=== PATIENT | female | born 1975 | race Two or more races ===

== ENCOUNTER 2022-09-13 07:54 | Outpatient (REF) | payer OTHER, SELFPAY ==
[2022-09-13 11:06] LABS: Hematocrit 39.5 % (37.0-47.0); Mean Corpuscular HGB Conc 32.9 g/dl (31.0-35.0); Mean Corpuscular Hemoglobin 29.3 pg (27.0-33.0); Platelet Count 354 X10*3/uL (160-400); Red Blood Count 4.44 X10*6/uL (4.20-5.50); Red Cell Distribution Width 12.6 % (11.0-16.0); White Blood Count 9.2 X10*3/uL (4.8-10.8)
[2022-09-13 12:02] LABS: Alanine Aminotransferase 19 U/L (0-31); Albumin Level 4.4 g/dL (3.5-5.0); Alkaline Phosphatase 74 U/L (39-117); Anion Gap 13 (12-20); Aspartate Amino Transferase 27 U/L (5-31); Bilirubin Total 0.3 mg/dL (0.0-1.0); Blood Urea Nitrogen 15 mg/dL (9-16); Calcium 8.9 mg/dL (8.4-10.2); Carbon Dioxide 25 mmol/L (22-29); Chloride 108 mmol/L (96-108); Cholesterol 203 mg/dL; Estimated Glomerular Filt Rate > 60; Glucose Fasting 99 mg/dL (60-99); HDL Cholesterol 44 mg/dL; LDL Cholesterol Calculated 141 mg/dl; Potassium 4.3 mmol/L (3.3-5.1); Sodium 142 mmol/L (135-145); Triglycerides 91 mg/dL
[2022-09-13 12:13] LABS: TSH reflex Free T4 3.14 uIU/mL (0.32-4.0)
[2022-09-19 22:14] LABS: Vitamin D 25-OH, D2 <4 ng/mL; Vitamin D 25-OH, D3 19 ng/mL; Vitamin D 25-OH, Total 19 ng/mL (30-100)
== END 2022-09-13 07:55 | disposition home or self-care (01) ==
LOC: HO.10HDL 07:54
PROVIDERS: Visit Provider Hospitalist
DX: Z00.00 Encounter for general adult medical examination without abnormal findings (principal); Z13.21 Encounter for screening for nutritional disorder; Z20.2 Contact with and (suspected) exposure to infections with a predominantly sexual mode of transmission
CPT/HCPCS: 36415; 80053; 80061; 82306; 84443; 85027

== ENCOUNTER 2023-01-19 11:05 | Day surgery (SDC) | payer OTHER, SELFPAY ==
[2023-01-17 11:19] VITALS: BMI 23.7
--- NOTE | 2023-01-18 10:19 | HO.ANESPROP2 ---
Documented by User: Bree Richmond NP 01/18/23 10:23 HPI - Anesthesia Eval Consult details Narrative: 47yo F for Colonoscopy PMFSH Active Problems Active Problems: All Active Problems (Updated 09/20/22 @ 08:24 by Xiomara Mccracken NP) Vitamin D deficiency (Acute) High cholesterol (Acute) Sleep-wake 24 hour cycle disruption (Acute) Vasomotor symptoms due to menopause (Acute) Stress due to family tension (Acute) Encounter for vitamin deficiency screening (Acute) Colon cancer screening (Acute) Normal physical exam (Acute) Past Medical History Medical History (Updated 01/19/23 @ 11:24 by Doris Murillo RN) Elevated cholesterol Vitamin D deficiency Surgical History Surgical History (Updated 01/19/23 @ 11:24 by Doris Murillo RN) Hx of appendectomy Hx of section Social History Social History Patient Tobacco Use Status: Former Tobacco user Use of substances other than those prescribed or required for medical reasons: Yes Substance Use Frequency: Occasionally Are you DNR?: No Advance Directives: No Advance Directives Information Provided: Yes Meds Allergies Allergy/AdvReac Type Severity Reaction Status Date / Time No Known Allergies Allergy Verified 01/19/23 11:22 Exam Exam Date and Time: January 18, 2023 1019 Height,Weight and Vital Signs: Height 5 ft 6 in Weight 66.678 kg Pertinent Lab Results Pertinent Lab Results: Laboratory Tests 09/13/22 09/13/22 07:57 07:57 WBC 9.2 Hgb 13.0 Hct 39.5 Plt Count 354 Sodium 142 Potassium 4.3 Chloride 108 Carbon Dioxide 25 BUN 15 Creatinine 0.87 Assessment and Plan Assessment Anesthesia Assessment: Chart Reviewed Documented by User: Keith Robins MD 01/19/23 11:58 PMFSH Past Medical History Medical History (Updated 01/19/23 @ 11:24 by Doris Murillo RN) Elevated cholesterol Vitamin D deficiency Family History Family history of problems with anesthesia: No Surgical History Surgical History (Updated 01/19/23 @ 11:24 by Doris Murillo RN) Hx of appendectomy Hx of section History of Problems with Anesthesia: No Social History Social History Patient Tobacco Use Status: Former Tobacco user Use of substances other than those prescribed or required for medical reasons: Yes Substance Use Frequency: Occasionally Are you DNR?: No Advance Directives: No Advance Directives Information Provided: Yes Meds Allergies Allergy/AdvReac Type Severity Reaction Status Date / Time No Known Allergies Allergy Verified 01/19/23 11:22 Exam Airway Mallampati Class: II TM Dist: >3cm Neck ROM: Full Assessment and Plan Assessment Anesthesia Assessment: Anesthesia Plan Discussed Final Anesthetic Review Family History of Problems with Anesthesia: No History of Problems with Anesthesia: No NPO: Yes ASA Class: II Final Preanesthetic Review: No Changes in Pt Med Stat, Meds/Allgs Chart Reviewed, Consent Obtained/Reviewed and Anes Risks/Benef Reviewed Patient Risk: Low Procedure Risk: Low Anesthetic Plan Anesthetic Plan: MAC: Disposition: Standard PACU
[2023-01-19 11:32] LABS: UPreg QC Valid YES; Urine Pregnancy NEGATIVE (NEGATIVE)
[2023-01-19 11:37] VITALS: BP 126/68; PULSE 76; RESP 15; TEMP 36.6; O2SAT 98
[2023-01-19] MEDS: Lactated Ringers 1,000 ML 100 ML IVCONT (11:52)
--- NOTE | 2023-01-19 12:01 | MHC.SHP ---
Pre-Procedural Eval Section A Date of Service: 01/19/23 The patient is an INPATIENT: No The History & Physical has been completed within 30 days and I have reviewed it.: No Section B Chief Complaint: Encounter for screening for malignant neoplasm Relevant Family History (Specify if Yes): Yes Relevant Social History: None Present Medications: see Short Stay Collaborative assessment Medical History: Significant History ( high cholesterol, vitamin-D deficiency) History of Previous Operations: No relevant previous surgery Allergies: Allergies Allergy/AdvReac Type Severity Reaction Status Date / Time No Known Allergies Allergy Verified 01/19/23 11:22 Review of Systems Sugical H&P ROS: Negative: Constitution, Cardiovascular, Respiratory and Gastrointestinal Exam Surgical H&P Exam: Normal: Heart, Normal: Lungs, Normal: Extremities and Normal: Abdomen Plan Diagnosis/Plan: Unchanged I have reviewed the history and physical and performed a pertinent physical examination on my patient. No changes have occurred unless specified. Time Spent With Patient Time: Total time managing care of this patient today ____ minutes.
--- NOTE | 2023-01-19 12:06 | W.PM.OPN ---
Operative Note Operative Note Date of Service: 01/19/23 Narrative: COLONOSCOPY TILL CECUM WITH BIOPSIES Pre-op diagnosis: colon cancer screening, family history of colon cancer (aunt in her 50's) and colon polyps (sister at age 47 years) Post-op diagnosis:? colon polyp, diverticulosis, hemorrhoids Endoscopist:? Damian Paredes MD Anesthesia:?MAC Consent: Indications for the procedure and potential complications of bleeding, perforation, reaction to medications and missed diagnosis were discussed with the patient and informed consent was obtained. Instrument: Olympus PCF H 190 L variable stiffness pediatric colonoscope Monitoring: Vital signs and clinical assessment, intermittent blood pressure monitoring, continuous EKG monitoring, Pulse oximetry and Carbon Dioxide monitoring were done throughout the procedure. Please see anesthesia flowsheet. Colon withdrawl time was 11 minutes. Procedure: The patient was placed in the left lateral decubitis position and pre-procedure medications were administered. After a digital rectal examination of the ano-rectum, the video colonoscope was inserted into the rectum and advanced through the colon to the cecum. The colonoscope was slowly withdrawn in a retrograde panoramic fashion and the colon mucosa was carefully examined including a retroflexed view of the rectum. Findings and interventions are described below. Procedure Difficulty: Without difficulty Findings: Terminal Ileum: Not evaluated Cecum: Normal Ascending Colon: A 7-8 mm sessile polyp in the distal AC - removed with a cold bx Transverse Colon: Normal Descending Colon: Normal Sigmoid Colon: Moderate diverticulosis Rectum: Normal Ano-rectum: Moderate internal hemorrhoids Colon preparation: Excellent Impression and Post Procedure Diagnosis: Colonoscopy Findings: One small polyp removed Moderate diverticulosis seen in the sigmoid colon Moderate hemorrhoids on retroflexed exam. Plan: I will send a letter with pathology results Repeat Colonoscopy interval based on path results - in 5 years if polyps are adenomatous and due to family hx of colon cancer and colon polyps. Above findings were reviewed with the patient and colon polyps and diverticulosis handouts were given in the discharge area
[2023-01-19 12:38] VITALS: BP 130/73; PULSE 68; RESP 16; TEMP 36.9; O2SAT 98
[2023-01-19 12:52] VITALS: BP 121/98; PULSE 69; RESP 16; TEMP 36.6; O2SAT 100
== END 2023-01-19 13:00 | disposition home or self-care (01) ==
PROVIDERS: Nurse Practitioner; PCP Hospitalist; Visit Provider Internal Medicine Gastroenterology
PROC: 0DJD8ZZ Inspection of Lower Intestinal Tract, Via Natural or Artificial Opening Endoscopic (ICD-10-PCS; CPT 45378; principal; 2023-01-19 12:20)
DX: Z12.11 Encounter for screening for malignant neoplasm of colon (principal); Z83.71 Family history of colonic polyps; D12.2 Benign neoplasm of ascending colon; K57.30 Diverticulosis of large intestine without perforation or abscess without bleeding; K64.8 Other hemorrhoids
CPT/HCPCS: 45380; 81025; 88305

== ENCOUNTER → 2023-01-19 11:05 | Outpatient (BNV) | payer OTHER, SELFPAY | PROVIDERS: PCP Hospitalist; Visit Provider Internal Medicine Gastroenterology | DX: Z12.11 Encounter for screening for malignant neoplasm of colon (principal); Z80.0 Family history of malignant neoplasm of digestive organs; Z83.71 Family history of colonic polyps; D12.2 Benign neoplasm of ascending colon | CPT/HCPCS: 45380 ==

== ENCOUNTER 2024-03-18 09:23 | Outpatient (AMB) | payer OTHER, SELFPAY ==
--- NOTE | 2024-03-18 09:32 | A.OFFPC_ITS ---
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 Is last menstrual period known: Yes Last menstrual period: 03/01/24 Post menopausal: No Patient : No Allergies No Known Allergies Allergy (Verified 03/18/24 09:46) Medication List - Last Reconciled 03/18/24 by Patrick Nick CNP atorvastatin 20 mg PO BEDTIME cholecalciferol (vitamin D3) 1,250 mcg PO QWEEK Tobacco use date assessed: 03/18/24 Dental Screening Dental Screen Date: 03/18/24 Did you have a dental visit in the last 12 months?: Yes Did you have a dental problem in the last 6 months where you did not have access to dental care?: No Was dental information given to patient?: Patient has dentist HPI HPI Comments History of Present Illness Details Transfer of care Prior PCP:? [facility], Xiomara Mccracken NP Last office visit/CPE: 08/2022 Acute issue(s): Vitamin-D deficiency -She was on Cholecalciferol 1250 mcg wee kly but ran out about 3 months ago Hypercholesterolemia -She was on atorvastatin 20mg every nigh t but ran out about 3 months ago She eats and sleeps well. She has been exercising routinely She reports chest tightness during physical exercise for the past 3 months; no dyspnea or chest pain. She notes history of childhood asthma for which she was on an albuterol inhaler PMHx: Vitamin-D deficiency, hypercholesterolemia, myopia, childhood asthma SurgHx: section, appendectomy FHx: Dad: Alcohol abuse, substance abuse, Paternal aunt: colon cancer SocHx: Former smoker; smoked for a couple of years in her 20s. Drinks occasionally. Smokes a blunt of marijuana twice daily; she has been smoking cannabis for several years Last eye exam was 2 years ago; will call her eye doctor for an appointment Last colonoscopy: 01/19/2023 Last mammogram was 04/2023 at [facility]; she has a mammogram scheduled in 04/2024; she will sign a release for her PCP to obtain her record Last pap smear test was in December 2022 at [facility]: normal [facility] Medical History (Updated 03/18/24 @ 10:15 by Patrick Nick CNP) Sinusitis Vitamin D deficiency Elevated cholesterol Surgical History (Updated 01/19/23 @ 11:24 by Doris Murillo RN) Hx of section Hx of appendectomy Family History (Updated 03/18/24 @ 09:47 by Milly Reyes) Father Alcohol abuse Substance abuse High cholesterol Cardiovascular disease Maternal Grandmother Leukemia Social History (Updated 03/18/24 @ 09:42 by Milly Reyes) Housing: Apartment Patient Tobacco Use Status: Former Tobacco user e-Cigarette/Vaping Use: Never Used Substance Use Type: Marijuana service: No Current occupational status: employed 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 1. Little interest or pleasure in doing things: not at all 2. Feeling down, depressed, or hopeless: not at all 3. Trouble falling or staying asleep, or sleeping too much: several days 4. Feeling tired or having little energy: not at all 5. Poor appetite or overeating: not at all 6. Feeling bad about yourself - or that you are a failure or have let yourself or your family down: not at all 7. Trouble concentrating on things, such as reading the newspaper or watching television: not at all 8. Moving or speaking so slowly that other people could have noticed. Or the opposite - being so fidgety or restless that you have been moving around a lot more than usual: not at all 9. Thoughts that you would be better off or of hurting yourself in some way: not at all Total score: 1 Depression Screening Interpretation: Negative Depression Screening Done: Yes 88567 - PHQ-9 Billing: Yes Source: Developed by Drs. Sherwin Cha, Liz Cervantes, Sourav Beyer and colleagues, with an educational allyssa from [employer] Thrive Questionnaire Date Thrive assessed: 03/18/24 I am a: Patient What is your living situation today?: I have a steady place to live Within the past 12 months, did the food you bought not last and you didn't have the money to get more?: Never true Within the past 12 months, did you worry whether your food would run out before you got money to buy more?: Never true Do you have trouble paying for medicines?: No Do you have trouble getting transportation to medical appointments?: No Do you have trouble paying your heating and electricity bill?: No Do you have trouble taking care of your child, family member or friend?: No Do you have trouble with day-to-day activities such as bathing, preparing meals, shopping, managing finances, etc.?: No Are you currently unemployed and looking for a job?: No Are you interested in more education?: No Please select the resources that you would like help with: None Currently or been in a relationship where the following occur: No concerns reported THRIVE Score: 0 AUDIT C Alcohol Use Questionnaire (AUDIT-C) 1. How often do you have a drink containing alcohol?: Monthly or less 2. How many drinks containing alcohol do you have on a typical day when you are drinking?: 1 or 2 3. How often do you have six or more drinks on one occasion?: Never Total Score: 1 Score Reviewed/Action Taken: Yes LUZMA-7 AMB Questionnaire LUZMA-7 Date LUZMA - 7 assessed: 03/18/24 Feeling nervous, anxious, or on edge: 0 = Not at all Not being able to stop or control worryin = Not at all Worrying too much about different things: 0 = Not at all Trouble relaxin = Not at all Being so restless that it is hard to sit still: 0 = Not at all Becoming easily annoyed or irritable: 0 = Not at all Feeling afraid as if something awful might happen: 0 = Not at all Total LUZMA-7 score (0-4 normal; 5-9 mild; 10-14 moderate; 15-21 severe): 0 Source: Developed by Drs. Sherwin Cha, Liz Cervantes, Sourav Beyer and colleagues, with an educational allyssa from [employer] LUZMA-7 Assessment Billing LUZMA-7 Assessment Tool: LUZMA-7 Assessment 43411 Review of Systems Const Details: Denies chills, Denies fatigue, Denies fever(s), Denies headache(s) and Denies weakness HEENT Denies change in vision, Denies dizziness, Denies headache(s), Denies hearing l oss, Denies nasal congestion, Denies sinus pain, Denies sinus pressure and Denies sore throat Card Denies chest pain, Denies lightheadedness, Denies dyspnea and Denies other (palpitations) Resp Denies cough, Denies dyspnea and Denies wheezing GI Denies abdominal pain, Denies melena, Denies hematochezia, Denies change in bowel habits, Denies dyspepsia and Denies nausea Denies hematuria and Denies dysuria Musc Denies abnormal gait, Denies myalgias, Denies arthralgias, Denies numbness and Denies tingling Skin/Breast Denies rash, Denies unusual bruising and Denies wounds Neuro Denies abnormal gait, Denies dizziness, Denies headache(s), Denies memory loss, Denies numbness, Denies Sensory deficit (Neuro), Denies tingling and Denies weakness Psych Denies anxiety, Denies depression and Denies memory loss Endo Denies cold intolerance, Denies fatigue, Denies heat intolerance, Denies polydipsia and Denies polyuria Jerry/Lymph Denies easy bleeding and Denies easy bruising Aller/Immun Denies wheezing Physical exam (Primary Care) Vital Signs: Last Vital Signs Temp 97.4 F 03/18/24 09:39 Pulse 85 03/18/24 09:39 Resp 16 03/18/24 09:39 BP 130/90 H 03/18/24 09:39 Pulse Ox 99 03/18/24 09:39 Oxygen Delivery Method Room Air 03/18/24 09:39 BMI result Body Mass Index 25.5 Tobacco/Smoking Status: Tobacco use Status Tobacco use date assessed 03/18/24 03/18/24 09:39 Patient Tobacco Use Status Former Tobacco user 03/18/24 09:42 e-Cigarette/Vaping Use Never Used 03/18/24 09:42 PHQ-9: PHQ-9 Score PHQ-9: Total score 1 03/18/24 09:47 Depression Screening Interpretation: Negative Thrive Assessment: Date of Thrive Assessment Date Thrive assessed 03/18/24 03/18/24 09:47 Currently or been in a relationship where the following occur: No concerns reported Const Other: General: no acute distress, well developed, alert and awake Nutritional Appearance: well nourished Orientation/consciousness: patient oriented x3 [facility] Head: Yes normocephalic and Yes atraumatic Ears: hearing grossly normal bilaterally and TM's normal bilaterally General nose exam: Normal external nose present and Normal nares present Mouth: Normal oral and palatal mucosa present and moist mucous membranes Teeth and gingiva: dentition normal Throat: Yes oropharynx normal Eyes Pupils: Equal, round and reactive pupils present and Pupil accommodation reflex normal EOM: EOMs intact bilaterally Neck Neck: Yes normal visual inspection, Yes no lymphadenopathy and Yes trachea midline Thyroid: Thyroid normal Carotids: no bruits Lymphatic: no lymphadenopathy noted Chest Chest palpation & inspection: normal inspection of the chest Resp Effort & Inspection: normal respiratory effort Auscultation: clear to auscultation bilaterally Cardio Rate: regular rate Rhythm: regular rhythm Heart sounds: S1 normal heart sound present, S2 normal heart sound present, no gallops, no murmurs and no rubs Bruits: no abdominal aortic bruits and no carotid bruits GI Palpation (GI): No Abdominal aortic bruit present, Soft to palpation, nontender, No hepatosplenomegaly present and No Rebound tenderness present Auscultation: normal bowel sounds General: Yes no CVA tenderness Back/Spine/Pelvis Back: no CVA tenderness Cervical Spine: cervical ROM normal and No Cervical spine tenderness Thoracic/Lumbar Spine: thoraco-lumbar ROM normal, No pain with thoraco-lumbar ROM, No thoracic spinal tenderness and No lumbar spinal tenderness Skin General: warm and dry. Normal skin color. Normal skin turgor Lesions: no lesions Rashes: no rashes Trauma: no lacerations or abrasions Wounds: no wounds Nails: normal Neuro General: patient oriented x3, gait normal and CN's II-XI intact bilaterally Cranial nerves: Yes Equal, round and reactive pupils present Cognition (Neuro): normal cognition Gait exam (Neuro): Normal gait present Motor exam (neuro): 5/5 motor strength present throughout Sensory Exam: No Sensory deficit (Neuro) Deep tendon reflexes (DTR's): Right patellar reflex intensity grade: 2+ and Left patellar reflex intensity grade: 2+ Extrem General: Yes normal to inspection, No edema and No calf tenderness Psych Appearance: grossly normal Affect: normal affect Attitude: cooperative Thought process: Normal thought process present Assessment and Plan Assessment & Plan (1) Normal physical exam: Code(s): Z00.00 - Encounter for general adult medical examination without abnormal findings Plan: No significant physical restrictions or limitations noted Continue current treatment regimen Healthy diet and routine exercise encouraged Advised to get lab work done and follow up for a telehealth visit in 2-3 weeks for labs review Return sooner with symptoms or concerns Verbalized understanding and agreed with the plan (2) Vitamin D deficiency: Code(s): E55.9 - Vitamin D deficiency, unspecified Plan: She was on vitamin D3 1250 mcg daily until she ran out 3 months ago Vitamin D3 50 mcg ordered. Advised to take as prescribed Will check vitamin D level and make changes and needed Verbalized understanding and agreed with the plan (3) Hypercholesterolemia: Code(s): E78.00 - Pure hypercholesterolemia, unspecified Plan: She has h/o slightly elevated cholesterol and LDL, 203 and 141 respectively. She was on atorvastatin 20mg every night until she ran out 3 months ago Advised to limit foods high in saturated fat and avoid foods high in trans fat Routine exercise encouraged Will check lipid panel level and make changes as needed Verbalized understanding and agreed with the plan (4) Chest tightness: Code(s): R07.89 - Other chest pain Plan: Reports chest tightness during physical exercise for the past 3 months. No dyspnea or chest pain. She notes h/o childhood asthma Likely exercise induced lungs/chest discomfort Albuterol inhaler ordered. Advised to use as prescribed Follow up with worsening or new symptoms Verbalized understanding and agreed with the treatment plan (5) Laboratory tests ordered as part of a complete physical exam (CPE): Code(s): Z00.00 - Encounter for general adult medical examination without abnormal findings Plan: Fasting labs ordered as part of a complete physical exam. Advised to fast for at least 10 hours before getting labs drawn. May drink water Verbalized understanding and agreed with treatment plan. Orders: Orders Complete Blood Count Auto Diff Today Z00.00 - Encounter for general adult medical examination without abnormal findings Comprehensive [place]. Panel Fast Today Z00.00 - Encounter for general adult medical examination without abnormal findings TSH reflex Free T4 Today Z00.00 - Encounter for general adult medical examination without abnormal findings Lipid Panel Today Z00.00 - Encounter for general adult medical examination without abnormal findings Microalbumin, Random (w Creat) Today Z00.00 - Encounter for general adult medical examination without abnormal findings UA CC w/rflx Micro + Cult Today Z00.00 - Encounter for general adult medical examination without abnormal findings Vitamin D 25-OH Total Today E55.9 - Vitamin D deficiency, unspecified Medications: New albuterol sulfate 90 mcg/actuation 2 puffs inhalation Q4-6H PRN 8.5 grams 3RF shortness of breath, wheezing or chest tightness cholecalciferol (vitamin D3) 50 mcg PO DAILY 90 days 90 tabs 1RF Discontinued atorvastatin Discontinued Reason: Patient no longer taking 20 mg PO BEDTIME 90 tabs 3RF E78.00 - Pure hypercholesterolemia, unspecified cholecalciferol (vitamin D3) Discontinued Reason: Doctor's Order 1,250 mcg PO QWEEK 14 caps 3RF E55.9 - Vitamin D deficiency, unspecified Coding Level of Care Code Est Pt Level 3 (29500) Est Pt Prev Care 40-64y(09895) Diagnoses Normal physical exam Z00.00 Vitamin D deficiency E55.9 Hypercholesterolemia E78.00 Chest tightness R07.89 Laboratory tests ordered as part of a complete physical exam (CPE) Z00.00 Additional Codes LUZMA-7 Assessment Billing - LUZMA-7 Assessment Tool: LUZMA-7 Assessment 95883 ([id number])
[2024-03-18 09:39] VITALS: BP 130/90; PULSE 85; RESP 16; TEMP 36.3; O2SAT 99; BMI 25.5
== END 2024-03-18 10:12 | disposition home or self-care (01) ==
LOC: HO.HMCFM 09:23
PROVIDERS: PCP Hospitalist; Visit Provider Nurse Practitioner Family
DX: Z00.00 Encounter for general adult medical examination without abnormal findings (principal); E55.9 Vitamin D deficiency, unspecified; E78.00 Pure hypercholesterolemia, unspecified; R07.89 Other chest pain

== ENCOUNTER → 2024-03-18 09:23 | Outpatient (BNVA) | payer OTHER, SELFPAY | PROVIDERS: PCP Hospitalist; Visit Provider Nurse Practitioner Family | DX: Z00.00 Encounter for general adult medical examination without abnormal findings (principal); E55.9 Vitamin D deficiency, unspecified; E78.00 Pure hypercholesterolemia, unspecified; R07.89 Other chest pain | CPT/HCPCS: 96127 ==

== ENCOUNTER 2024-03-31 08:03 | Outpatient (REF) | payer OTHER, SELFPAY ==
[2024-03-31 10:37] LABS: MANUAL DIFF FLAG NO
[2024-03-31 10:43] LABS: Basophils Absolute Auto 0.1 X10*3/uL (0.0-0.2); Basophils Percent Auto 0.7 % (0-2); Eosinophils Absolute Auto 0.7 X10*3/uL (0.0-0.4); Eosinophils Percent Auto 7.9 % (0-4); Hematocrit 38.6 % (37.0-47.0); Imm Gran Abs Auto 0.03 X10*3/uL (0.00-0.03); Imm Gran Pct Auto 0.4 % (0.0-0.4); Lymphocytes Absolute Auto 2.1 X10*3/uL (1.2-4.9); Mean Corpuscular HGB Conc 33.7 g/dl (31.0-35.0); Mean Corpuscular Hemoglobin 29.1 pg (27.0-33.0); Mean Corpuscular Volume 86.5 fL (80.0-98.0); Mean Platelet Volume 9.1 fL (9.4-12.3); Monocytes Absolute Auto 0.7 X10*3/uL (0.1-1.2); Neutrophils Absolute Auto 4.8 x10*3/uL (2.0-8.3); Platelet Count 330 X10*3/uL (160-400); Red Blood Count 4.46 X10*6/uL (4.20-5.50); Red Cell Distribution Width 12.8 % (11.0-16.0); White Blood Count 8.2 X10*3/uL (4.8-10.8)
[2024-03-31 10:55] LABS: Appearance Urine Turbid; Color Urine Yellow; Glucose Urine UA Negative (Negative); Leukocyte Esterase Urine Negative (Negative); Nitrite Urine Negative (Negative); PH 5.5 (5.0-9.0); Specific Gravity - Urine >= 1.030 (1.005-1.025); Urine Blood Negative (Negative); Urine Ketones Negative (Negative); Urine Protein Negative (Neg-Trace)
[2024-03-31 11:12] LABS: Alanine Aminotransferase 17 U/L (0-31); Albumin Level 4.4 g/dL (3.5-5.0); Alkaline Phosphatase 73 U/L (39-117); Anion Gap 13 (12-20); Aspartate Amino Transferase 16 U/L (5-31); Bilirubin Total 0.2 mg/dL (0.0-1.0); Blood Urea Nitrogen 17 mg/dL (9-16); Calcium 9.3 mg/dL (8.4-10.2); Carbon Dioxide 23 mmol/L (22-29); Chloride 107 mmol/L (96-108); Cholesterol 182 mg/dL (<200); Creatinine Urine 229.86 mg/dL; Estimated Glomerular Filt Rate > 60; Glucose Fasting 121 mg/dL (60-99); HDL Cholesterol 48 mg/dL (>40); LDL Cholesterol Calculated 116 mg/dL (<100); Microalbum/Creatinine Ratio Ur 3.9 ug/mg cr (<30); Potassium 4.1 mmol/L (3.3-5.1); Sodium 139 mmol/L (135-145); Total Protein 7.7 g/dL (6.5-8.0); Triglycerides 94 mg/dL (<150)
[2024-03-31 11:20] LABS: TSH reflex Free T4 2.36 uIU/mL (0.32-4.0); Vitamin D 25-OH Total 66.9 ng/mL (>30)
== END 2024-03-31 08:04 | disposition home or self-care (01) ==
LOC: HO.10HDL 08:03
PROVIDERS: Visit Provider Nurse Practitioner Family
DX: Z00.00 Encounter for general adult medical examination without abnormal findings (principal); E55.9 Vitamin D deficiency, unspecified
CPT/HCPCS: 36415; 80053; 80061; 81003; 82043; 82306; 82570; 84443; 85025

== ENCOUNTER 2024-04-04 12:25 | Outpatient (AMB) | payer OTHER, SELFPAY ==
--- NOTE | 2024-04-04 12:22 | A.OFFPC_ITS ---
Intake Visit Reasons: 2-3 wks telehealth labs review Intake Note: patient here for telehealth to follow up on labs National Business Director Required: No Allergies No Known Allergies Allergy (Verified 04/04/24 12:23) Tobacco use date assessed: 03/18/24 Dental Screening Dental Screen Date: 03/18/24 HPI HPI Comments History of Present Illness Details 48-year-old female presents for review o f recent lab results She offers no complaints and denies acute symptoms at this time PFS Medical History (Updated 04/04/24 @ 12:48 by Patrick Nick CNP) Sinusitis Vitamin D deficiency Elevated cholesterol Surgical History (Updated 01/19/23 @ 11:24 by Doris Murillo RN) Hx of section Hx of appendectomy Family History (Updated 03/18/24 @ 09:47 by Milly Reyes MA) Father Alcohol abuse Substance abuse High cholesterol Cardiovascular disease Maternal Grandmother Leukemia Social History (Updated 03/18/24 @ 09:42 by Milly Reyes MA) Housing: Apartment Patient Tobacco Use Status: Former Tobacco user e-Cigarette/Vaping Use: Never Used Substance Use Type: Marijuana service: No Current occupational status: employed 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 Sherwin Cha, Liz Cervantes, Sourav Beyer and colleagues, with an educational allyssa from [employer]. Review of Systems Const Details: Const Denies chills, Denies fatigue, Denies fever(s), Denies headache(s) and Denies weakness ENT Denies dizziness and Denies headache(s) Card Denies chest pain, Denies lightheadedness, Denies dyspnea and Denies other (Palpitations) Resp Denies cough, Denies dyspnea, Denies wheezing and Denies other ( shortness of breath) GI Denies abdominal pain, Denies melena, Denies hematochezia, Denies change in bowel habits, Denies dyspepsia and Denies nausea Denies hematuria and Denies dysuria Musc Denies abnormal gait, Denies myalgias, Denies arthralgias, Denies numbness and Denies tingling Skin/Breast Denies rash, Denies unusual bruising and Denies wounds Neuro Denies abnormal gait, Denies dizziness, Denies headache(s), Denies memory loss, Denies numbness, Denies Sensory deficit (Neuro), Denies tingling and Denies weakness Endo Denies cold intolerance, Denies fatigue, Denies heat intolerance, Denies polydipsia and Denies polyuria Aller/Immun Denies wheezing Physical exam (Primary Care) Tobacco/Smoking Status: Tobacco use Status Tobacco use date assessed 03/18/24 04/04/24 12:24 Patient Tobacco Use Status Former Tobacco user 04/04/24 12:24 e-Cigarette/Vaping Use Never Used 04/04/24 12:24 Thrive Assessment: Date of Thrive Assessment Date Thrive assessed 03/18/24 04/04/24 12:24 Const Other: Telehealth visit. No physical exam Telehealth Telehealth Telehealth Platform: Telephone Location of provider rendering services: practice address Location of patient: address on file Patient Identification confirmed using: Name, : Yes Telehealth method: voice only Patient verbally consented to treatment: Yes Patient verbally consented to billing insurance company: Yes Patient informed of any privacy concerns related to visit: Yes Coding Level of Care Code Tele Est Pt Level 3 (19533) Diagnoses Elevated fasting glucose R73.01 Time Spent (min) 10 Assessment & Plan Assessment & Plan (1) Elevated fasting glucose: Code(s): R73.01 - Impaired fasting glucose Category: Medical Plan: Recent lab results reviewed with the patient. Unremarkable findings except for elevated fasting glucose, 121 Will recheck fasting glucose and make changes as needed. Advised to fast for 10-12 hours, may drink water only, and get blood work done a few days before her next visit Follow-up in 2 weeks for a telehealth visit for labs review or sooner with symptoms or concerns Verbalized understanding and agreed with the plan Orders: Orders Glucose Fasting Today R73.01 - Impaired fasting glucose
== END 2024-04-04 12:54 | disposition home or self-care (01) ==
LOC: HO.HMCFM 12:25
PROVIDERS: PCP Hospitalist; Visit Provider Nurse Practitioner Family
DX: R73.01 Impaired fasting glucose (principal)

== ENCOUNTER → 2024-04-04 12:25 | Outpatient (BNVA) | payer OTHER, SELFPAY | PROVIDERS: PCP Hospitalist; Visit Provider Nurse Practitioner Family ==

== ENCOUNTER 2024-04-28 07:52 | Outpatient (REF) | payer OTHER, SELFPAY ==
[2024-04-28 08:47] LABS: Glucose Fasting 116 mg/dL (60-99)
[2024-05-05 14:38] LABS: Vitamin D 25-OH, D2 <4 ng/mL; Vitamin D 25-OH, D3 47 ng/mL; Vitamin D 25-OH, Total 47 ng/mL (30-100)
== END 2024-04-28 07:53 | disposition home or self-care (01) ==
LOC: HO.LAB 07:52
PROVIDERS: Hospitalist; PCP Nurse Practitioner Family; Visit Provider Nurse Practitioner Family
DX: R73.01 Impaired fasting glucose (principal); E55.9 Vitamin D deficiency, unspecified
CPT/HCPCS: 36415; 82306; 82947

== ENCOUNTER 2024-04-30 15:20 | Outpatient (AMB) | payer OTHER, SELFPAY ==
--- NOTE | 2024-04-30 10:26 | MHC.PC.OV ---
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 Is last menstrual period known: Yes Last menstrual period: 03/01/24 Post menopausal: No Patient : No Allergies No Known Allergies Allergy (Verified 04/30/24 15:19) Tobacco use date assessed: 04/30/24 Dental Screening Dental Screen Date: 03/18/24 Did you have a dental visit in the last 12 months?: Yes Did you have a dental problem in the last 6 months where you did not have access to dental care?: No Was dental information given to patient?: Patient has dentist HPI HPI Comments History of Present Illness Details 48-year-old female presents for review of recent fasting blood glucose result She offers no complaints and denies acute symptoms at this time [facility] Medical History (Updated 04/04/24 @ 12:48 by Patrick Nick CNP) Sinusitis Vitamin D deficiency Elevated cholesterol Surgical History (Updated 01/19/23 @ 11:24 by Doris Murillo RN) Hx of section Hx of appendectomy Family History (Updated 03/18/24 @ 09:47 by Milly Reyes MA) Father Alcohol abuse Substance abuse High cholesterol Cardiovascular disease Maternal Grandmother Leukemia Social History (Updated 03/18/24 @ 09:42 by Milly Reyes MA) Housing: Apartment Patient Tobacco Use Status: Former Tobacco user e-Cigarette/Vaping Use: Never Used Substance Use Type: Marijuana Patient : No service: No Current occupational status: employed 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 Sherwin Cha, Liz Cervantes, Sourav Beyer and colleagues, with an educational allyssa from [employer]. Review of Systems Const Details: Const Denies chills, Denies fatigue, Denies fever(s), Denies headache(s) and Denies weakness ENT Denies dizziness and Denies headache(s) Card Denies chest pain, Denies lightheadedness, Denies dyspnea and Denies other (Palpitations) Resp Denies cough, Denies dyspnea, Denies wheezing and Denies other ( shortness of breath) GI Denies abdominal pain, Denies melena, Denies hematochezia, Denies change in bowel habits, Denies dyspepsia and Denies nausea Denies hematuria and Denies dysuria Musc Denies abnormal gait, Denies myalgias, Denies arthralgias, Denies numbness and Denies tingling Skin/Breast Denies rash, Denies unusual bruising and Denies wounds Neuro Denies abnormal gait, Denies dizziness, Denies headache(s), Denies memory loss, Denies numbness, Denies Sensory deficit (Neuro), Denies tingling and Denies weakness Psych Denies anxiety, Denies depression, Denies memory loss Endo Denies cold intolerance, Denies fatigue, Denies heat intolerance, Denies polydipsia and Denies polyuria Aller/Immun Denies wheezing Physical exam (Primary Care) Tobacco/Smoking Status: Tobacco use Status Tobacco use date assessed 04/30/24 04/30/24 15:20 Patient Tobacco Use Status Former Tobacco user 04/30/24 10:29 e-Cigarette/Vaping Use Never Used 04/30/24 10:29 Thrive Assessment: Date of Thrive Assessment Date Thrive assessed 03/18/24 04/30/24 10:29 Const Other: Telehealth visit. No physical exam Telehealth Telehealth Telehealth Platform: Telephone Location of provider rendering services: practice address Location of patient: address on file Patient Identification confirmed using: Name, : Yes Telehealth method: voice only Patient verbally consented to treatment: Yes Patient verbally consented to billing insurance company: Yes Patient informed of any privacy concerns related to visit: Yes Coding Level of Care Code Tele Est Pt Level 3 (00120) Diagnoses Elevated fasting glucose R73.01 Time Spent (min) 10 Assessment & Plan Assessment & Plan (1) Elevated fasting glucose: Code(s): R73.01 - Impaired fasting glucose Category: Medical Plan: Recent fasting glucose is 116. Previous fasting glucose was 121 Will order hemoglobin A1c, review result, and make changes as needed Advised to get nonfasting blood work done Verbalized understanding and agreed with the plan Orders: Orders Hemoglobin A1c Today R73.01 - Impaired fasting glucose
== END 2024-04-30 16:06 | disposition home or self-care (01) ==
LOC: HO.HMCFM 15:20
PROVIDERS: PCP Nurse Practitioner Family; Visit Provider Nurse Practitioner Family
DX: R73.01 Impaired fasting glucose (principal)

== ENCOUNTER 2024-05-27 08:04 | Outpatient (REF) | payer OTHER, SELFPAY ==
[2024-05-27 12:06] LABS: Estimated Average Glucose 123 mg/dL; Hemoglobin A1C 177.5177 umol/L; Hemoglobin A1c % 5.9 % (<6.0); Total Hemoglobin (HGBA1C) 4340.1913 umol/L
== END 2024-05-27 08:05 | disposition home or self-care (01) ==
LOC: HO.10HDL 08:04
PROVIDERS: Visit Provider Nurse Practitioner Family
DX: R73.01 Impaired fasting glucose (principal)
CPT/HCPCS: 36415; 83036

== ENCOUNTER 2024-12-17 14:16 | Outpatient (AMB) | payer OTHER, SELFPAY ==
--- NOTE | 2024-12-17 14:44 | A.OFFPC_ITS ---
Vital Signs 12/17/24 14:48 Height 5 ft 6 in Weight 157 lb BMI 25.3 BP 136/86 Blood Pressure Location Lt brachial Position Sitting Respiration 12 Pulse 81 Pulse Source Pulse Oximeter Temp 98.6 F Temp Source Oral Pulse Oximetry (%) 98 Oxygen Delivery Method Room Air Intake Visit Reasons: [facility] from [facility] Intake Note: New patient visit Instructional Technology Director Required: No Allergies No Known Allergies Allergy (Verified 12/17/24 14:44) Medication List - Last Reconciled 12/17/24 by Farrah Chavez PA-C albuterol sulfate 90 mcg/actuation 2 puffs inhalation Q4-6H PRN trazodone 50 mg PO BEDTIME Tobacco use date assessed: 12/17/24 Dental Screening Dental Screen Date: 12/17/24 Did you have a dental visit in the last 12 months?: Yes Did you have a dental problem in the last 6 months where you did not have access to dental care?: No Was dental information given to patient?: Patient has dentist HPI [facility] from [facility] HPI Details Pt is a 49 year old female who presents today to [facility]. She has a hx of perimenopause, prediabetic, hyperlipidemia Endo: Last A1c was consistent with prediabetes. States that this is very stressful for her that she does not feel like she had a great understanding of the prediabetes. No family history. Psych: She is frustrated because she finds herself emotional more than baseline, foggy with her memory and having very disturbed sleep. She states that she only sleeps every couple hours. She is up all throughout the night e luzmaria since being perimenopausal. She is getting some intermittent hot flashes. Has not notice any significant improvement with the hot flashes with the HRT. MSK: reports bilateral hip pain, lumbar back pain, right shoulder pain x 1 year. No radiation of the pain. Walking for a long time will worsen the pain and stiffen the joints. No trauma. She states she is overall just achy. No joint swelling, erythema, no rashes, no instability. No illness prior. No fam hx of autoimmune disease. 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 Mammo: mauro 05/18 Colonoscopy: due in 2027 [facility] Medical History (Updated 12/17/24 @ 15:34 by Farrah Chavez PA-C) Sinusitis Vitamin D deficiency Elevated cholesterol Surgical History Hx of section Hx of appendectomy Family History Father Alcohol abuse Substance abuse High cholesterol Cardiovascular disease Maternal Grandmother Leukemia Social History (Updated 12/18/24 @ 14:15 by Isabella Snyder CMA) Housing: Apartment Alcohol intake: current Patient Tobacco Use Status: Former Tobacco user e-Cigarette/Vaping Use: Never Used Use of substances other than those prescribed or required for medical reasons: Yes Substance Use Type: Marijuana service: No Current occupational status: employed 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 1. Little interest or pleasure in doing things: several days 2. Feeling down, depressed, or hopeless: several days 3. Trouble falling or staying asleep, or sleeping too much: nearly every day 4. Feeling tired or having little energy: several days 5. Poor appetite or overeating: not at all 6. Feeling bad about yourself - or that you are a failure or have let yourself or your family down: not at all 7. Trouble concentrating on things, such as reading the newspaper or watching television: not at all 8. Moving or speaking so slowly that other people could have noticed. Or the opposite - being so fidgety or restless that you have been moving around a lot more than usual: not at all 9. Thoughts that you would be better off or of hurting yourself in some way: not at all Total score: 6 Depression Screening Interpretation: Positive Depression Screening Done: Yes 10067 - PHQ-9 Billing: Yes Source: Developed by Drs. Sherwin Cha, iLz Cervantes, Sourav Beyer and colleagues, with an educational allyssa from [employer] Thrive Questionnaire Date Thrive assessed: 12/17/24 I am a: Patient What is your living situation today?: I have a steady place to live Within the past 12 months, did the food you bought not last and you didn't have the money to get more?: Never true Within the past 12 months, did you worry whether your food would run out before you got money to buy more?: Never true Do you have trouble paying for medicines?: No Do you have trouble getting transportation to medical appointments?: No Do you have trouble paying your heating and electricity bill?: No Do you have trouble taking care of your child, family member or friend?: No Do you have trouble with day-to-day activities such as bathing, preparing meals, shopping, managing finances, etc.?: No Are you currently unemployed and looking for a job?: No Are you interested in more education?: No Please select the resources that you would like help with: None Currently or been in a relationship where the following occur: No concerns reported THRIVE Score: 0 AUDIT C Alcohol Use Questionnaire (AUDIT-C) 1. How often do you have a drink containing alcohol?: Monthly or less 2. How many drinks containing alcohol do you have on a typical day when you are drinking?: 1 or 2 3. How often do you have six or more drinks on one occasion?: Never Total Score: 1 LUZMA-7 AMB Questionnaire LUZMA-7 Date LUZMA - 7 assessed: 12/17/24 Feeling nervous, anxious, or on edge: 0 = Not at all Not being able to stop or control worryin = Not at all Worrying too much about different things: 0 = Not at all Trouble relaxin = Not at all Being so restless that it is hard to sit still: 0 = Not at all Becoming easily annoyed or irritable: 1 = Several days Feeling afraid as if something awful might happen: 0 = Not at all Total LUZMA-7 score (0-4 normal; 5-9 mild; 10-14 moderate; 15-21 severe): 1 Source: Developed by Drs. Sherwin Cha, Liz Cervantes, Sourav Beyer and colleagues, with an educational allyssa from [employer] LUZMA-7 Assessment Billing LUZMA-7 Assessment Tool: LUZMA-7 Assessment 01023 Physical exam (Primary Care) Vital Signs: Last Vital Signs Temp 98.6 F 12/17/24 14:48 Pulse 81 12/17/24 14:48 Resp 12 12/17/24 14:48 BP 136/86 12/17/24 14:48 Pulse Ox 98 12/17/24 14:48 Oxygen Delivery Method Room Air 12/17/24 14:48 BMI result Body Mass Index 25.3 Tobacco/Smoking Status: Tobacco use Status Tobacco use date assessed 12/17/24 12/17/24 14:45 Patient Tobacco Use Status Former Tobacco user 12/17/24 14:45 e-Cigarette/Vaping Use Never Used 12/17/24 14:45 PHQ-9: PHQ-9 Score PHQ-9: Total score 6 12/18/24 14:15 Depression Screening Interpretation: Positive Thrive Assessment: Date of Thrive Assessment Date Thrive assessed 12/17/24 12/17/24 14:45 Currently or been in a relationship where the following occur: No concerns r eported Const Orientation/consciousness: patient oriented x3 HENMT Ears: hearing grossly normal bilaterally Neck Thyroid: Thyroid normal Lymphatic: no lymphadenopathy noted Resp Auscultation: clear to auscultation bilaterally Cardio Rate: regular rate Rhythm: regular rhythm Heart sounds: S1 normal heart sound present and S2 normal heart sound present GI Inspection: Yes normal to inspection Palpation (GI): Soft to palpation and Other GI palpation findings present (nontender, no cva tenderness) Auscultation: normoactive bowel sounds Rectal Exam - Female: deferred Skin General skin exam: no rashes or lesions noted Neuro General: patient oriented x3, gait normal and no focal motor deficits Results Reviewed Results Reviewed: Laboratory Tests 03/31/24 04/28/24 05/27/24 08:10 08:02 08:08 WBC 8.2 RBC 4.46 Hgb 13.0 Hct 38.6 Plt Count 330 Sodium 139 Potassium 4.1 Chloride 107 Anion Gap 13 BUN 17 H Creatinine 0.98 Estimated GFR > 60 Fasting Glucose 116 H Estimat Average Glucose 123 Hemoglobin A1c % 5.9 Calcium 9.3 Total Bilirubin 0.2 AST 16 ALT 17 Alkaline Phosphatase 73 Total Protein 7.7 Albumin 4.4 Triglycerides 94 Cholesterol 182 LDL Cholesterol, Calc 116 H HDL Cholesterol 48 25-OH Vitamin D Total 66.9 47 Coding Level of Care Code Est Pt Level 5 (65819) Complex EM visit Add On G2211 Diagnoses Bilateral hip pain M25.551; M25.552 Lumbar pain M54.50 Right shoulder pain M25.511 Insomnia G47.00 Perimenopausal N95.1 Prediabetes R73.03 Additional Codes LUZMA-7 Assessment Billing - LUZMA-7 Assessment Tool: LUZMA-7 Assessment 19302 ([id number]) PHQ-9 - 12502 - PHQ-9 Billing: Yes ([id number]) Assessment & Plan Assessment & Plan (1) Bilateral hip pain: Code(s): M25.551 - Pain in right hip; M25.552 - Pain in left hip Category: Medical Plan: X-rays ordered (2) Lumbar pain: Code(s): M54.50 - Low back pain, unspecified Category: Medical Plan: As above (3) Right shoulder pain: Code(s): M25.511 - Pain in right shoulder Category: Medical Plan: As above. Labs ordered (4) Insomnia: Code(s): G47.00 - Insomnia, unspecified Category: Medical Plan: We will start her on trazodone. We discussed risks and benefits and adverse effects of this medication. I will have her do a short term follow up. (5) Perimenopausal: Code(s): N95.1 - Menopausal and female climacteric states Category: Medical Plan: As above. Currently being managed by Gynecology (6) Prediabetes: Code(s): R73.03 - Prediabetes Category: Medical Plan: We reviewed the pathophysiology of diabetes, the differences between type 1 and type 2 diabetes and complications associated with diabetes including but not limited to increased risk of blindness, amputation, infections, CVA, SC etc.. We reviewed signs and symptoms of hyper and hypoglycemia and diets that would need to be changed. She is going to work on some lifestyle modifications. She is following with weight watchers and has already lost some weight. Plan We spent about 55 minutes in wrid-xa-bure time today reviewing her previous labs, the prediabetes, a list of all of her concerns. Orders: Orders Hemoglobin A1c 12/17/24 G47.00 - Insomnia, unspecified, M25.511 - Pain in right shoulder, M25.551 - Pain in right hip, M25.552 - Pain in left hip, M54.50 - Low back pain, unspecified, N95.1 - Menopausal and female climacteric states, R73.01 - Impaired fasting glucose, R73.03 - Prediabetes Erythrocyte Sedimentation Rate 12/17/24 G47.00 - Insomnia, unspecified, M25.511 - Pain in right shoulder, M25.551 - Pain in right hip, M25.552 - Pain in left hip, M54.50 - Low back pain, unspecified, N95.1 - Menopausal and female climacteric states, R73.03 - Prediabetes Magnesium 12/17/24 G47.00 - Insomnia, unspecified, M25.511 - Pain in right shoulder, M25.551 - Pain in right hip, M25.552 - Pain in left hip, M54.50 - Low back pain, unspecified, N95.1 - Menopausal and female climacteric states, R73.03 - Prediabetes Microalbumin, Random (w Creat) 12/17/24 G47.00 - Insomnia, unspecified, M25.511 - Pain in right shoulder, M25.551 - Pain in right hip, M25.552 - Pain in left hip, M54.50 - Low back pain, unspecified, N95.1 - Menopausal and female climacteric states, R73.03 - Prediabetes TSH reflex Free T4 12/17/24 G47.00 - Insomnia, unspecified, M25.511 - Pain in right shoulder, M25.551 - Pain in right hip, M25.552 - Pain in left hip, M54.50 - Low back pain, unspecified, N95.1 - Menopausal and female climacteric states, R73.03 - Prediabetes XR lumbar spine 2-3V 12/17/24 M25.511 - Pain in right shoulder, M54.50 - Low back pain, unspecified XR hips ULYSSES min 3V 12/17/24 M25.511 - Pain in right shoulder, M25.551 - Pain in right hip, M25.552 - Pain in left hip Complete Blood Count Auto Diff 12/17/24 G47.00 - Insomnia, unspecified, M25.511 - Pain in right shoulder, M25.551 - Pain in right hip, M25.552 - Pain in left hip, M54.50 - Low back pain, unspecified, N95.1 - Menopausal and female climacteric states, R73.03 - Prediabetes Comprehensive [place]. Panel Fast 12/17/24 G47.00 - Insomnia, unspecified, M25.511 - Pain in right shoulder, M25.551 - Pain in right hip, M25.552 - Pain in left hip, M54.50 - Low back pain, unspecified, N95.1 - Menopausal and female climacteric states, R73.03 - Prediabetes MICK Reflex Titer and Pattern 12/17/24 G47.00 - Insomnia, unspecified, M25.511 - Pain in right shoulder, M25.551 - Pain in right hip, M25.552 - Pain in left hip, M54.50 - Low back pain, unspecified, N95.1 - Menopausal and female climacteric states, R73.03 - Prediabetes Lyme IgG/IgM w/reflex to WB 12/17/24 G47.00 - Insomnia, unspecified, M25.511 - Pain in right shoulder, M25.551 - Pain in right hip, M25.552 - Pain in left hip, M54.50 - Low back pain, unspecified, N95.1 - Menopausal and female climacteric states, R73.03 - Prediabetes UA CC w/rflx Micro + Cult 12/17/24 G47.00 - Insomnia, unspecified, M25.511 - Pain in right shoulder, M25.551 - Pain in right hip, M25.552 - Pain in left hip, M54.50 - Low back pain, unspecified, N95.1 - Menopausal and female climacteric states, R73.03 - Prediabetes, Z13.220 - Encounter for screening for lipoid disorders Vitamin B12 and Folate 12/17/24 G47.00 - Insomnia, unspecified, M25.511 - Pain in right shoulder, M25.551 - Pain in right hip, M25.552 - Pain in left hip, M54.50 - Low back pain, unspecified, N95.1 - Menopausal and female climacteric states, R73.03 - Prediabetes Rheumatoid Factor 12/17/24 G47.00 - Insomnia, unspecified, M25.511 - Pain in right shoulder, M25.551 - Pain in right hip, M25.552 - Pain in left hip, M54.50 - Low back pain, unspecified, N95.1 - Menopausal and female climacteric states, R73.03 - Prediabetes XR shoulder RT min 2V 12/17/ M25.511 - Pain in right shoulder Medications: New trazodone 50 mg PO BEDTIME 90 tabs 0RF
[2024-12-17 14:48] VITALS: BP 136/86; PULSE 81; RESP 12; TEMP 37; O2SAT 98; BMI 25.3
--- OUTSIDE RECORDS SUMMARY | 2024-12-17 17:01 | XMS_ITS | Clinical Summary ---
Author Organization [facility] [address] [place] [address] Address [address] [place] [address] Phone Care Team Providers Care Lasting Machine Operator Name Role Phone MccrackenXiomara sifuentes Mahsa OUTBOARD MOTORBOAT OPERATOR Primary Care Provider Allergies No known active allergies Medications albuterol HFA (PROAIR HFA ; PROVENTIL HFA ; VENTOLIN HFA) 90 mcg/actuation inhaler Inhale 2 puffs by mouth every 6 (six) hours if needed for wheezing. Active estradioL (VIVELLE-DOT) 0.025 mg/[address] 1 patch on the skin 2 (two) times a week. 24 patch 3 11/10/2024 6 Active medroxyPROGESTER one (Provera) 5 mg tablet Take 1 tablet (5 mg total) by mouth 1 (one) time each day. 30 each 3 11/07/2024 6 Active Active Problems Problem Noted Date Diagnosed Date Postmenopausal HRT (hormone replacement therapy) 11/07/2024 Encounters Date Type Department Care Team Description 11/07/2024 2:15 PM EDT Office Visit Obstetrics and Gynecology [address] [phone] Madhavi Reynolds CNM Vasomotor symptoms due to menopause (Primary Dx); Postmenopausal HRT (hormone replacement therapy); Sebaceous cyst of labia from Last 3 Months Surgical History Surgery Date Site/Laterality Comments APPENDECTOMY PROCEDURE: HISTORICAL APPENDECTOMY SECTION PROCEDURE: HISTORICAL DELIVERY OTHER SURGICAL HISTORY PROCEDURE: OK DILATION & CURETTAGE DX&/THER NONOBSTETRIC CERVICAL BIOPSY W/ LOOP ELECTRODE EXCISION PROCEDURE: OK CONIZATION CERVIX W/WO D&C RPR ELTRD EXC Medical History Medical History Date Comments Cervical dysplasia DX:Cervical d ysplasia; COMMENT: at 18yo Family History Medical History Relation Name Comments Other: colon cancer Aunt Paunt Hypertension Father Other: hyperlipidemia Father Leukemia Maternal Grandmother Diabetes Paternal Grandfather Other: alzhemier Paternal Grandmother Breast cancer Neg Hx Cervical cancer Neg Hx Ovarian cancer Neg Hx Uterine cancer Neg Hx Relation Name Status Comments Aunt Daughter Alive Father Alive Maternal Grandfather Maternal Grandmother Mother Alive Paternal Grandfather Paternal Grandmother Sister Alive Social History Tobacco Use Types Packs/Day Years Used Date Smoking Tobacco: Former Cigarettes Q uit: 02/23/2007 Smokeless Tobacco: Never Alcohol Use Standard Drinks/Week Comments Yes 0 (1 standard drink = 0.6 oz pur e alcohol) Housing Instability Answer Date Recorde d Are you worried that in the next 2 months you may not have stable housing? No 11/07/2024 Food Access & Nutrition Answer Date Rec orded Do you have access to a vari ety of food including fruits and vegetables? Yes 11/07/2024 Access to Healthcare Answer Date Record ed Within the last 3 months, ho buddy many times did you visit the emergency department for your medical care? 0 11/07/2024 Health Literacy Answer Date Recorded How often do you need to hav e someone help you when you read instructions, pamphlets, or other written material from your doctor or pharmacy? Never 11/07/2024 Caregiver: How often do you need to have someone help you when you read instructions, pamphlets, or other written material from your doctor or pharmacy? Not on file 11/07/2024 Financial Risk Answer Date Recorded How hard is it for you to pa y for the very basics like food, housing, medical care, and air conditioning / heating? Not very hard 11/07/2024 Transportation Answer Date Recorded Has the lack of transportati on kept you from meetings, work, or from getting things needed for daily living? No Has the lack of transportati on kept you from medical appointments or from getting medications? No 11/07/2024 Social Isolation Answer Date Recorded How often do you feel lonely or isolated from those around you? Sometimes 11/07/2024 Food Risk Answer Date Recorded Within the past 12 months we worried whether our food would run out before we got money to buy more. Never true 11/07/2024 Within the past 12 months th e food we bought just didn't last and we didn't have money to get more. Never true 11/07/2024 Dependent Care Answer Date Recorded Do you need help finding or paying for care for your loved ones. For example, children's lunchroom supervisor or elderly care for an older adult? No 11/07/2024 Education Answer Date Recorded Do you think completing more education or training, like finishing a GED, going to college, or learning a trade, would be helpful for you? No 11/07/2024 Employment and Income Answer Date Recor ded During the last four weeks, have you been actively looking for work? No 11/07/2024 Living Situation Answer Date Recorded What is your living situation? 0 11/07/2024 Comments No Sex and Gender Information Value Date Recorded Sex Assigned at Not on file Legal Sex Female 9:02 AM EST Gender Identity Not on file Sexual Orientation Not on file Obstetrics History Para Term AB IAB SAB Ectopic Multiple Livin g Live Births 2 1 1 1 1 1 1 Date Outcome GA Total Labor Labor/2nd/3rd Weight Sex Type Anes PTL Evy A1 A5 Name Clin 5 IAB Decea sed 2007 Term 40w 2d 3459 g (122 oz) F CS-Un spec Spinal Livin g 8 8 venecia a amilcar r Comments:NICU x12d, pu lmonary hypertension Last Filed Vital Signs Vital Sign Reading Time Taken Comments Blood Pressure 117/67 11/07/2024 2:15 PM EDT Pulse 76 11/07/2024 2:15 PM EDT Temperature - - Respiratory Rate 12 11/07/2024 2:15 PM EDT Oxygen Saturation - - Inhaled Oxygen Concentration - - Weight 71.7 kg (158 lb) 11/07/2024 2:15 PM EDT Height 162.6 cm (5' 4 ) 11/07/2024 2:15 PM EDT Body Mass Index 27.12 11/07/2024 2:15 PM EDT Plan of Treatment Upcoming Encounters Date Type Department Care Team (Late st Contact Info) Description 01/08/2025 10:00 AM EDT Office Visit Obstetrics and Gynecology - [address] [phone] Madhavi Reynolds, [facility] [address] [place], [place] 02/20/2025 8:40 AM EDT Office Visit Obstetrics and Gynecology - [address] [phone] Roseann Schwarz, [facility] [address] [place], [place] Health Maintenance Due Date Last Done Comments DTaP,Tdap,and Td Vaccines (1 - Tdap) 1995 Hepatitis B Vaccines (1 of 3 - 19+ 3-dose series) 1995 Colorectal Cancer Screening: Colonoscopy 06/03/2022 HIV Screening 06/03/2022 Hepatitis C Screening 06/03/2022 Cervical Cancer Screening: Pap Smear 06/04/2023 06/04/2020 COVID-19 Vaccine ( season) 2024 07/15/2021, 11/12/2020, 10/22/2020 Influenza Vaccine (Season Ended) 2025 04/18/2019, 04/05/2018 Depression Screening 11/07/2025 11/07/2024 Social Influencers of Health Screening 11/07/2025 11/07/2024 Breast Cancer Screening 05/05/2026 05/05/20 24, 05/01/2023, 04/26/2022, Additional history exists HIB Vaccines Aged Out No longer eligi ble based on patient's age to complete this topic HPV Vaccines Aged Out No longer eligi ble based on patient's age to complete this topic Hepatitis A Vaccines Aged Out No long er eligible based on patient's age to complete this topic IPV Vaccines Aged Out No longer eligi ble based on patient's age to complete this topic MMR Vaccines Aged Out No longer eligi ble based on patient's age to complete this topic Meningococcal ACWY Vaccine Aged Out N o longer eligible based on patient's age to complete this topic Meningococcal B Vaccine Aged Out No l onger eligible based on patient's age to complete this topic Pneumococcal Vaccine: Pediatrics (0 to 5 Years) and At-Risk Patients (6 to 64 Years) Aged Out No longer eligible based on patient's age to complete this topic RSV Immunization Patients Under 20 months Aged Out No longer eligible based on patient's age to complete this topic Varicella Vaccines Aged Out No longer eligible based on patient's age to complete this topic Procedures Procedure Name Priority Date/Time Associated Diagnosis Comments MG MAMMO DIGITAL SCREENING W JAX BILAT Routine 05/05/2024 4:12 PM EST Encounter for screening mammogram for breast cancer PAP SMEAR Routine 06/04/2020 from Last 3 Months or Most Recently Relevant to Health Maintenance Results * MG Mammo Digital Screening w Jax bilat (05/05/2024 4:12 PM EST) Anatomical Region Laterality Modality Breast Bilateral Mammography 05/06/2024 4:14 PM EST Impressions 05/06/2024 4:18 PM EST No mammographic evidence for malignancy. BI-RADS CATEGORY: 1 - NEGATIVE RECOMMENDATION: Screening bilateral mammogram is recommended in 1 year. Mammo Location: [facility], [address] [place] [address], [address], . -------- FINAL REPORT -------- Dictated By: Shauna Madrid Dictated Date: 05/06/2024 16:14 ET Assigned Physician: Shauna Madrid Reviewed and Electronically Signed By: Shauna Madrid Signed Date: 05/06/2024 16:18 ET Workstation ID: [id number] Transcribed By: Self Edit Transcribed Date: 05/06/2024 16:14 ET Narrative 05/06/2024 4:18 PM EST Bilateral screening mammogram. CLINICAL: 48 years old, Female, routine annual exam. COMPARISON: TECHNIQUE: Bilateral MLO and CC views were obtained digitally with 3-D mammogram (digital breast tomosynthesis). Computer-aided detection was utilized in evaluation of this exam (CAD). FINDINGS: There is no evidence of suspicious mass or architectural distortion. No worrisome calcifications are evident. There has been no significant change from prior exam(s). BREAST DENSITY: B - There are scattered areas of fibroglandular density. Procedure Note Shauna Madrid MD - 05/06/2024 Bilateral screening mammogram. CLINICAL: 48 years old, Female, routine annual exam. COMPARISON: TECHNIQUE: Bilateral MLO and CC views were obtained digitally with 3-Dmammogram (digital breast tomosynthesis). Computer-aided detection wasutilized in evaluation of this exam (CAD). FINDINGS: There is no evidence of suspicious mass or architectural distortion. Noworrisome calcifications are evident. There has been no significantchange from prior exam(s). BREAST DENSITY: B - There are scattered areas of fibroglandular density. IMPRESSION: No mammographic evidence for malignancy. BI-RADS CATEGORY: 1 - NEGATIVE RECOMMENDATION: Screening bilateral mammogram is recommended in 1 year. Mammo Location: [facility], [address] [place] [address], [address], . -------- FINAL REPORT -------- Dictated By: Shauna Madrid Dictated Date: 05/06/2024 16:14 ET Assigned Physician: Shauna Madrid Reviewed and Electronically Signed By: Shauna Madrid Signed Date: 05/06/2024 16:18 ET Workstation ID: [id number] Transcribed By: Self Edit Transcribed Date: 05/06/2024 16:14 ET us Xiomara Mccracken NP IMG BI PROCEDURES Final Res ult * Pap smear (06/04/2020) 06/04/2020 Narrative HISTORICAL TESTING LAB RESULTING AGENCY - 06/09/2020 1:55 PM EST [id number] THINPREP PAP, IMAGED: NEGATIVE FOR SQUAMOUS INTRAEPITHELIAL LESION AND MALIGNANCY . CLUE CELLS ARE PRESENT. TAMMY LARES , YISEL(ASCP) (CASE ELECTRONICALLY SIGNED 06 09 2020) RESULT OF APTIMA HIGH RISK HPV ASSAY: HIGH RISK HPV: NEGATIVE (SEROTYPES 16,18,31,33,35,39,45,51,52,56,58,59,66,68) COMPLETED ON 2020-06-08 ADEQUACY: SATISFACTORY ENDOCERVICAL/TRANSFORMATION ZONE COMPONENT ABSENT. SOURCE: THINPREP PAP HPV ANY DX: REFLEX 16 AND 18, CERVICAL, IMAGED CLINICAL INFORMATION: HPV ANY DIAGNOSIS. HORMONES, PAP HX NEG, LMP 05/11/20, Z12.4 Roseann Schwarz CNM LAB CYTOLOGY ORDERABLES Final Result HISTORICAL TESTING LAB RESULTING AGENCY from Last 3 Months or Most Recently Relevant to Health Maintenance Insurance [facility] [address] [place] [address] Care Teams Lasting Machine Operator Relationship Specialty Start Date End Date Xiomara Mccracken NP [address] [facility] [address] [place] [address] PCP - General 11/29/22
== END 2024-12-17 15:50 | disposition home or self-care (01) ==
LOC: HO.HMCFM 14:17
PROVIDERS: PCP Physician Assistant; Visit Provider Physician Assistant
DX: M25.551 Pain in right hip (principal); M25.552 Pain in left hip; M54.50 Low back pain, unspecified; M25.511 Pain in right shoulder; G47.00 Insomnia, unspecified; N95.1 Menopausal and female climacteric states; R73.03 Prediabetes

== ENCOUNTER → 2024-12-17 14:16 | Outpatient (BNVA) | payer OTHER, SELFPAY | PROVIDERS: PCP Physician Assistant; Visit Provider Physician Assistant | DX: M25.551 Pain in right hip (principal); E78.5 Hyperlipidemia, unspecified; M25.552 Pain in left hip; M54.50 Low back pain, unspecified; M25.511 Pain in right shoulder; G47.00 Insomnia, unspecified; N95.1 Menopausal and female climacteric states; R73.03 Prediabetes | CPT/HCPCS: 96127 ==

== ENCOUNTER 2025-01-20 08:08 | Outpatient (REF) | payer OTHER, SELFPAY ==
--- OUTSIDE RECORDS SUMMARY | 2025-01-20 08:13 | XMS_ITS | Clinical Summary ---
Author Organization [facility] [address] [place] [address] Address [address] [place] [address] Phone Care Team Providers Care Crosstie Inspector Name Role Phone MccrackenXiomara sifuentes Mahsa MAINTENANCE MECHANIC ENGINE Primary Care Provider Allergies No known active [...] PM EDT Office Visit Obstetrics and Gynecology [address] [phone] Madhavi Reynolds CNM Vasomotor symptoms due to menopause (Primary Dx); Postmenopausal HRT (hormone replacement therapy); Sebaceous cyst of labia from Last 3 Months Surgical History Surgery Date Site/Laterality Comments APPENDECTOMY PROCEDURE: HISTORICAL APPENDECTOMY SECTION PROCEDURE: HISTORICAL DELIVERY OTHER SURGICAL HISTORY PROCEDURE: NE DILATION & CURETTAGE DX&/THER NONOBSTETRIC CERVICAL BIOPSY W/ LOOP ELECTRODE EXCISION PROCEDURE: NE CONIZATION CERVIX W/WO D&C RPR ELTRD EXC [...] care for your loved ones. For example, childcare provider or elderly care for an older adult? [...] Care Team (Late st Contact Info) Description 02/11/2025 9:45 AM EDT Office Visit Obstetrics & Gynecology - [address] [phone] Roseann Schwarz, [facility] [address] [place] [address] Health Maintenance Due Date Last Done Comments DTaP,Tdap,and Td Vaccines (1 - Tdap) 1995 Hepatitis B Vaccines (1 of 3 - 19+ 3-dose series) 1995 Colorectal Cancer Screening: Colonoscopy 06/03/2022 HIV Screening 06/03/2022 Hepatitis C Screening 06/03/2022 Cervical Cancer Screening: Pap Smear 06/04/2023 06/04/2020 COVID-19 Vaccine ( season) 2024 07/15/2021, 11/12/2020, 10/22/2020 Influenza Vaccine (#1) 2025 04/18/2019, 2017 Social Influencers of Health Screening 11/07/2025 11/07/2024 Breast Cancer Screening 05/05/2026 05/05/20 24, 05/01/2023, 04/26/2022, Additional history exists Depression Screening Completed 11/07/2024 HIB Vaccines Aged Out No longer eligi [...] 5 Years) and At-Risk Patients (6 to 49 Years) Aged Out No longer eligible based [...] is recommended in 1 year. Mammo Location: [facility], [address] [place] [address], [address], . -------- FINAL REPORT -------- Dictated By: Shauna Madrid Dictated Date: 05/06/2024 16:14 ET Assigned Physician: Shauna Madrid Reviewed and Electronically Signed By: Shauna Madrid Signed Date: 05/06/2024 16:18 ET Workstation ID: [id number] Transcribed By: Self Edit Transcribed Date: 05/06/2024 [...] is recommended in 1 year. Mammo Location: [facility], [address] [place] [address], [address], . -------- FINAL REPORT -------- Dictated By: Shauna Madrid Dictated Date: 05/06/2024 16:14 ET Assigned Physician: Shauna Madrid Reviewed and Electronically Signed By: Shauna Madrid Signed Date: 05/06/2024 16:18 ET Workstation ID: [id number] Transcribed By: Self Edit Transcribed Date: 05/06/2024 16:14 ET us Xiomara Mccracken NP IMG BI PROCEDURES Final Res ult * Pap smear (06/04/2020) 06/04/2020 Narrative HISTORICAL TESTING LAB RESULTING AGENCY - 06/09/2020 1:55 PM EST [id number] THINPREP PAP, IMAGED: NEGATIVE FOR SQUAMOUS INTRAEPITHELIAL LESION AND MALIGNANCY . CLUE CELLS ARE PRESENT. YISEL CONDE(ASCP) (CASE ELECTRONICALLY SIGNED 06 09 2020) RESULT OF APTIMA HIGH RISK HPV ASSAY: HIGH RISK HPV: NEGATIVE (SEROTYPES 16,18,31,33,35,39,45,51,52,56,58,59,66,68) COMPLETED ON 2020-06-08 ADEQUACY: SATISFACTORY ENDOCERVICAL/TRANSFORMATION ZONE COMPONENT ABSENT. SOURCE: THINPREP PAP HPV ANY DX: REFLEX 16 AND 18, CERVICAL, IMAGED CLINICAL INFORMATION: HPV ANY DIAGNOSIS. HORMONES, PAP HX NEG, LMP 05/11/20, Z12.4 Roseann MOTA LAB CYTOLOGY ORDERABLES Final Result HISTORICAL TESTING LAB RESULTING AGENCY from Last 3 Months or Most Recently Relevant to Health Maintenance Insurance [facility] [address] [place] [address] Care Teams Crosstie Inspector Relationship Specialty Start Date End Date Xiomara Mccracken NP [address] [facility] [address] [place] [address] PCP - General 11/29/22
[2025-01-20 10:07] LABS: MANUAL DIFF FLAG NO
[2025-01-20 10:22] LABS: Hemoglobin A1C 144.5247 umol/L; Total Hemoglobin (HGBA1C) 3543.0145 umol/L
[2025-01-20 10:23] LABS: Hematocrit 39.8 % (37.0-47.0); Hemoglobin 13.3 g/dl (12.0-16.0); Imm Gran Abs Auto 0.03 X10*3/uL (0.00-0.03); Imm Gran Pct Auto 0.4 % (0.0-0.4); Lymphocytes Absolute Auto 1.7 X10*3/uL (1.2-4.9); Mean Corpuscular HGB Conc 33.4 g/dl (31.0-35.0); Mean Corpuscular Hemoglobin 28.4 pg (27.0-33.0); Mean Corpuscular Volume 84.9 fL (80.0-98.0); NRBC Abs Auto 0.000 X10*3/uL (0.0-0.012); NRBC Pct Auto 0.0 /100WBC (0.0-0.2); Platelet Count 365 X10*3/uL (160-400); Red Blood Count 4.69 X10*6/uL (4.20-5.50); White Blood Count 8.0 X10*3/uL (4.8-10.8)
[2025-01-20 10:33] LABS: Appearance Urine Turbid; Glucose Urine UA 100 mg/dL (Negative); PH 6.0 (5.0-9.0); Specific Gravity - Urine >= 1.030 (1.005-1.025); UMIC TRIGGER UACC YES
[2025-01-20 11:05] LABS: Alanine Aminotransferase 16 U/L (0-31); Albumin Level 5.1 g/dL (3.5-5.0); Alkaline Phosphatase 80 U/L (39-117); Anion Gap 14 (12-20); Aspartate Amino Transferase 21 U/L (5-31); Blood Urea Nitrogen 16 mg/dL (9-16); Calcium 9.4 mg/dL (8.4-10.2); Carbon Dioxide 24 mmol/L (22-29); Chloride 110 mmol/L (96-108); Estimated Glomerular Filt Rate 60; Potassium 3.6 mmol/L (3.3-5.1); Sodium 144 mmol/L (135-145); Total Protein 8.1 g/dL (6.5-8.0)
[2025-01-20 11:26] LABS: Folate 6.9 ng/mL (> or = 4.0); Vitamin B12 436 pg/mL (200-900)
[2025-01-21 09:19] LABS: Lyme Abs Screen <0.90 index
[2025-01-23 12:28] LABS: Anti Nuclear Antibody Screen NEGATIVE (NEGATIVE)
== END 2025-01-20 08:09 | disposition home or self-care (01) ==
LOC: HO.10HDL 08:08
PROVIDERS: Visit Provider Physician Assistant
DX: M25.551 Pain in right hip (principal); M25.552 Pain in left hip; M54.50 Low back pain, unspecified; M25.511 Pain in right shoulder; G47.00 Insomnia, unspecified; N95.1 Menopausal and female climacteric states; R73.03 Prediabetes; R73.01 Impaired fasting glucose
CPT/HCPCS: 36415; 80053; 81001; 82607; 82746; 83036; 84443; 85025; 85652; 86038; 86431; 86617; 86618

== ENCOUNTER 2025-01-26 08:05 | Outpatient (REF) | payer OTHER, SELFPAY ==
--- NOTE | ~2025-01-26 | XR_ITS ---
EXAMINATION: XR SHOULDER 2 OR MORE VIEWS RIGHT HISTORY: M25.511 - Pain in right shoulder COMPARISON: There are no prior studies available for comparison. FINDINGS: Four views of the right shoulder are submitted. Osseous mineralization is normal. There is no fracture or dislocation. The lateral humeral and acromioclavicular joint spaces are preserved. The soft tissues are unremarkable. XR/XR shoulder RT min 2V IMPRESSION: Unremarkable examination of the right shoulder. Electronically signed by: Sherwin Durbin MD 01/26/2025 08:42 AM EDT
--- NOTE | ~2025-01-26 | XR_ITS ---
EXAMINATION: XR LUMBAR SPINE 2-3 VIEWS HISTORY: M54.50 - Low back pain, unspecified COMPARISON: There are no prior studies for comparison. FINDINGS: AP, lateral, and coned down views of the lumbar spine are submitted. Osseous mineralization is normal. Five nonrib-bearing lumbar vertebral bodies are identified, maintaining normal height and alignment without evidence of fracture or spondylolisthesis. The intervertebral disc spaces are preserved. The posterior elements are intact. The visualized paraspinal soft tissues are unremarkable. XR/XR lumbar spine 2-3V IMPRESSION: Unremarkable examination of the lumbar spine. Electronically signed by: Sherwin Durbin MD 01/26/2025 08:43 AM EDT
--- NOTE | ~2025-01-26 | XR_ITS ---
EXAMINATION: XR HIP 2 OR MORE VIEWS BILATERAL HISTORY: M25.551 - Pain in right hip COMPARISON: There are no prior studies available for comparison. FINDINGS: Two views of each hip are submitted. Osseous mineralization is normal. There is fracture or dislocation. Joint spaces are maintained. The soft tissues are unremarkable. XR/XR hips ULYSSES min 3V IMPRESSION: Unremarkable examination of the bilateral hips. Electronically signed by: Sherwin Durbin MD 01/26/2025 08:46 AM EDT
--- OUTSIDE RECORDS SUMMARY | 2025-01-26 08:10 | XMS_ITS | Clinical Summary ---
Author Organization [facility] [address] [place] [address] Address [address] [place] [address] Phone Care Team Providers Care Camp Assistant Name Role Phone MccrackenXiomara sifuentes Mahsa OUTDOOR FITNESS TRAINER Primary Care Provider Allergies No known active [...] PM EDT Office Visit Obstetrics and Gynecology [address] [phone] Madhavi Reynolds CNM Vasomotor symptoms due to menopause (Primary Dx); Postmenopausal HRT (hormone replacement therapy); Sebaceous cyst of labia from Last 3 Months Surgical History Surgery Date Site/Laterality Comments APPENDECTOMY PROCEDURE: HISTORICAL APPENDECTOMY SECTION PROCEDURE: HISTORICAL DELIVERY OTHER SURGICAL HISTORY PROCEDURE: CA DILATION & CURETTAGE DX&/THER NONOBSTETRIC CERVICAL BIOPSY W/ LOOP ELECTRODE EXCISION PROCEDURE: CA CONIZATION CERVIX W/WO D&C RPR ELTRD EXC [...] for your loved ones. For example, children's book author or elderly care for an older adult? [...] EDT Office Visit Obstetrics & Gynecology - [address] [phone] Roseann Schwarz, [facility] [address] [place] [address] Health Maintenance Due Date Last Done Comments [...] is recommended in 1 year. Mammo Location: [facility], [address] [place] [address], [address], . -------- FINAL REPORT -------- Dictated By: Shauna Madrid Dictated Date: 05/06/2024 16:14 ET Assigned Physician: Shauna Madrid Reviewed and Electronically Signed By: Shauna Madrid Signed Date: 05/06/2024 16:18 ET Workstation ID: [id number] Transcribed By: Self Edit Transcribed Date: 05/06/2024 [...] is recommended in 1 year. Mammo Location: [facility], [address] [place] [address], [address], . -------- FINAL REPORT -------- Dictated By: Shauna Madrid Dictated Date: 05/06/2024 16:14 ET Assigned Physician: Shauna Madrid Reviewed and Electronically Signed By: Shauna Madrid Signed Date: 05/06/2024 16:18 ET Workstation ID: [id number] Transcribed By: Self Edit Transcribed Date: 05/06/2024 16:14 ET us Xiomara Mccracken NP IMG BI PROCEDURES Final Res ult * Pap smear (06/04/2020) 06/04/2020 Narrative HISTORICAL TESTING LAB RESULTING AGENCY - 06/09/2020 1:55 PM EST [id number] THINPREP PAP, IMAGED: NEGATIVE FOR SQUAMOUS INTRAEPITHELIAL [...] Most Recently Relevant to Health Maintenance Insurance [facility] [address] [place] [address] Care Teams Camp Assistant Relationship Specialty Start Date End Date Xiomara Mccracken NP [address] [facility] [address] [place] [address] PCP - General 11/29/22
== END 2025-01-26 08:06 | disposition home or self-care (01) ==
LOC: HO.XRAY 08:05
PROVIDERS: PCP Physician Assistant; Visit Provider Physician Assistant
DX: M54.50 Low back pain, unspecified (principal); M25.511 Pain in right shoulder; M25.551 Pain in right hip; M25.552 Pain in left hip
CPT/HCPCS: 72100; 73030; 73522

== ENCOUNTER → 2025-01-26 08:11 | Outpatient (BNV) | payer OTHER, SELFPAY | PROVIDERS: PCP Physician Assistant; Visit Provider Radiology Diagnostic Radiology | DX: M25.551 Pain in right hip (principal); M54.50 Low back pain, unspecified; M25.511 Pain in right shoulder | CPT/HCPCS: 72100; 73030; 73522 ==

== ENCOUNTER 2025-01-28 10:50 | Outpatient (AMB) | payer OTHER, SELFPAY ==
--- NOTE | 2025-01-28 10:57 | A.OFFPC_ITS ---
Vital Signs 01/28/25 11:00 Height 5 ft 6 in Weight 152 lb BMI 24.5 BP 126/84 Blood Pressure Location Rt brachial Position Sitting Respiration 12 Pulse 76 Pulse Source Pulse Oximeter Temp 98.7 F Temp Source Oral Pulse Oximetry (%) 98 Oxygen Delivery Method Room Air Intake Visit Reasons: med and lab followup Intake Note: Medication follow, lab and xray results. Oim Architect Required: No Allergies No Known Allergies Allergy (Verified 01/28/25 10:59) Medication List - Last Reconciled 01/28/25 by Farrah Chavez PA-C albuterol sulfate 90 mcg/actuation 2 puffs inhalation Q4-6H PRN estradiol 1 patch topical 2XW medroxyprogesterone 5 mg PO DAILY Tobacco use date assessed: 01/28/25 Dental Screening Dental Screen Date: 12/17/24 HPI med and lab followup HPI Details Pt is a 49 year old female who presents today for a follow up. She has a hx of perimenopause, prediabetic, hyperlipidemia Endo: Last A1c was consistent with prediabetes. No family history. She has lost 5 lb since our last visit and attributes this to increased physical activity and healthy diet Psych: She is feeling a lot better with the trazodone. She is sleeping in her mood is improved. 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 and states she is finally feeling better Mammo: mauro 05/18 Colonoscopy: due in 2027 [facility], [facility] Medical History (Updated 01/28/25 @ 11:26 by Farrah Chavez PA-C) Sinusitis Vitamin D deficiency Elevated cholesterol Surgical History Hx of section Hx of appendectomy Family History Father Alcohol abuse Substance abuse High cholesterol Cardiovascular disease Maternal Grandmother Leukemia Social History (Updated 12/18/24 @ 14:15 by Isabella Snyder CMA) Housing: Apartment Alcohol intake: current Patient Tobacco Use Status: Former Tobacco user e-Cigarette/Vaping Use: Never Used Substance Use Type: Marijuana service: No Current occupational status: employed 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 [employer] Current occupational exposures/hazards: No Cognitive needs: No Hearing needs: No Vision needs: No Questionnaire Thrive Questionnaire Date Thrive assessed: 12/17/24 I am a: Patient What is your living situation today?: I have a steady place to live Within the past 12 months, did the food you bought not last and you didn't have the money to get more?: Never true Within the past 12 months, did you worry whether your food would run out before you got money to buy more?: Never true Do you have trouble paying for medicines?: No Do you have trouble getting transportation to medical appointments?: No Do you have trouble paying your heating and electricity bill?: No Do you have trouble taking care of your child, family member or friend?: No Do you have trouble with day-to-day activities such as bathing, preparing meals, shopping, managing finances, etc.?: No Are you currently unemployed and looking for a job?: No Are you interested in more education?: No Please select the resources that you would like help with: None Currently or been in a relationship where the following occur: No concerns reported THRIVE Score: 0 LUZMA-7 AMB Questionnaire LUZMA-7 Date LUZMA - 7 assessed: 12/17/24 Source: Developed by Drs. Sherwin Cha, Liz Cervantes, Sourav Beyer and colleagues, with an educational allyssa from [employer]. Physical exam (Primary Care) Tobacco/Smoking Status: Tobacco use Status Tobacco use date assessed 12/17/24 01/28/25 10:58 Patient Tobacco Use Status Former Tobacco user 01/28/25 10:58 e-Cigarette/Vaping Use Never Used 01/28/25 10:58 Thrive Assessment: Date of Thrive Assessment Date Thrive assessed 12/17/24 01/28/25 10:58 Currently or been in a relationship where the following occur: No concerns reported Const Orientation/consciousness: patient oriented x3 HENMT Ears: hearing grossly normal bilaterally Neck Thyroid: Thyroid normal Lymphatic: no lymphadenopathy noted Resp Auscultation: clear to auscultation bilaterally Cardio Rate: regular rate Rhythm: regular rhythm Heart sounds: S1 normal heart sound present and S2 normal heart sound present GI Inspection: Yes normal to inspection Palpation (GI): Soft to palpation and Other GI palpation findings present (nontender, no cva tenderness) Auscultation: normoactive bowel sounds Rectal Exam - Female: deferred Skin General skin exam: no rashes or lesions noted Neuro General: patient oriented x3, gait normal and no focal motor deficits Results Reviewed Results Reviewed: Laboratory Tests 01/20/25 08:16 WBC 8.0 RBC 4.69 Hgb 13.3 Hct 39.8 Plt Count 365 Creatinine 0.99 Estimated GFR 60 Fasting Glucose 124 H Hemoglobin A1c % 5.9 AST 21 ALT 16 Rheumatoid Factor < 13.0 MICK Screen NEGATIVE Lyme Screen IgG & IgM <0.90 XR/XR shoulder RT min 2V IMPRESSION: Unremarkable examination of the right shoulder, hips, lumbar spine Coding Level of Care Code Est Pt Level 4 (29229) Complex EM visit Add On G2211 Diagnoses Prediabetes R73.03 Hypercholesterolemia E78.00 Proteinuria R80.9 Insomnia G47.00 Assessment & Plan Assessment & Plan (1) Prediabetes: Code(s): R73.03 - Prediabetes Category: Medical Plan: She is working hard on diet and lifestyle modifications. We will recheck in a few months (2) Hypercholesterolemia: Code(s): E78.00 - Pure hypercholesterolemia, unspecified Category: Medical Plan: We will monitor and recheck in a few months (3) Proteinuria: Code(s): R80.9 - Proteinuria, unspecified Category: Medical Plan: Reports being very dehydrated for the last urine. We will recheck this tomorrow. We will follow up pending test results. (4) Insomnia: Code(s): G47.00 - Insomnia, unspecified Category: Medical Plan: Significantly improved with trazodone 100 mg. Continue current regimen Orders: Orders Hemoglobin A1c Today E55.9 - Vitamin D deficiency, unspecified, E78.00 - Pure hypercholesterolemia, unspecified, N95.1 - Menopausal and female climacteric states, R73.01 - Impaired fasting glucose, R73.03 - Prediabetes Vitamin D 25-OH Total Today E55.9 - Vitamin D deficiency, unspecified, E78.00 - Pure hypercholesterolemia, unspecified, N95.1 - Menopausal and female climacteric states, R73.03 - Prediabetes Complete Blood Count Auto Diff Today E55.9 - Vitamin D deficiency, unspecified, E78.00 - Pure hypercholesterolemia, unspecified, N95.1 - Menopausal and female climacteric states, R73.03 - Prediabetes Comprehensive Claude. Panel Fast Today E55.9 - Vitamin D deficiency, unspecified, E78.00 - Pure hypercholesterolemia, unspecified, N95.1 - Menopausal and female climacteric states, R73.03 - Prediabetes TSH reflex Free T4 Today E55.9 - Vitamin D deficiency, unspecified, E78.00 - Pure hypercholesterolemia, unspecified, N95.1 - Menopausal and female climacteric states, R73.03 - Prediabetes UA CC w/rflx Micro + Cult Today R31.9 - Hematuria, unspecified, Z13.220 - Encounter for screening for lipoid disorders Microalbumin, Random (w Creat) Today R31.9 - Hematuria, unspecified Medications: New trazodone 100 mg PO BEDTIME 90 tabs 3RF
[2025-01-28 11:00] VITALS: BP 126/84; PULSE 76; RESP 12; TEMP 37.1; O2SAT 98; BMI 24.5
--- OUTSIDE RECORDS SUMMARY | 2025-01-28 11:33 | XMS_ITS | Clinical Summary ---
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 Primary Care Provider Allergies No known active [...] PM EDT Office Visit Obstetrics and Gynecology [address] [phone] Madhavi Reynolds CNM Vasomotor symptoms due to menopause (Primary Dx); Postmenopausal HRT (hormone replacement therapy); Sebaceous cyst of labia from Last 3 Months Surgical History Surgery Date Site/Laterality Comments APPENDECTOMY PROCEDURE: HISTORICAL APPENDECTOMY SECTION PROCEDURE: HISTORICAL DELIVERY OTHER SURGICAL HISTORY PROCEDURE: MD DILATION & CURETTAGE DX&/THER NONOBSTETRIC CERVICAL BIOPSY W/ LOOP ELECTRODE EXCISION PROCEDURE: MD CONIZATION CERVIX W/WO D&C RPR ELTRD EXC [...] care for your loved ones. For example, registered nurse maternal child or elderly care for an older adult? [...] EDT Office Visit Obstetrics & Gynecology - [address] [phone] Roseann Schwazr, JENNIFER [address] [place] [address] Health Maintenance Due Date Last Done Comments [...] is recommended in 1 year. Mammo Location: [facility], [address] [place] [address], [address], . -------- FINAL REPORT -------- Dictated By: Shauna Madrid Dictated Date: 05/06/2024 16:14 ET Assigned Physician: Shauna Madrid Reviewed and Electronically Signed By: Shauna Madrid Signed Date: 05/06/2024 16:18 ET Workstation ID: [id number] Transcribed By: Self Edit Transcribed Date: 05/06/2024 [...] is recommended in 1 year. Mammo Location: [facility], [address] [place] [address], [address], . -------- FINAL REPORT -------- Dictated By: Shauna Madrid Dictated Date: 05/06/2024 16:14 ET Assigned Physician: Shauna Madrid Reviewed and Electronically Signed By: Shauna Madrid Signed Date: 05/06/2024 16:18 ET Workstation ID: [id number] Transcribed By: Self Edit Transcribed Date: 05/06/2024 16:14 ET us Xiomara Mccracken NP IMG BI PROCEDURES Final Res ult * Pap smear (06/04/2020) 06/04/2020 Narrative HISTORICAL TESTING LAB RESULTING AGENCY - 06/09/2020 1:55 PM EST [id number] THINPREP PAP, IMAGED: NEGATIVE FOR SQUAMOUS INTRAEPITHELIAL [...] Most Recently Relevant to Health Maintenance Insurance [facility] [address] [place] [address] Care Teams Hide Grader Relationship Specialty Start Date End Date Xiomara Mccracken NP [address] [facility] [address] [place] [address] PCP - General 11/29/22
== END 2025-01-28 11:25 | disposition home or self-care (01) ==
LOC: HO.HMCFM 10:51
PROVIDERS: PCP Physician Assistant; Visit Provider Physician Assistant
DX: R73.03 Prediabetes (principal); E78.00 Pure hypercholesterolemia, unspecified; R80.9 Proteinuria, unspecified; G47.00 Insomnia, unspecified

== ENCOUNTER 2025-01-30 12:48 | Outpatient (REF) | payer OTHER, SELFPAY ==
--- OUTSIDE RECORDS SUMMARY | 2025-01-30 12:51 | XMS_ITS | Clinical Summary ---
Author Organization [facility] [address] [place] [address] Address [address] [place] [address] Phone Care Team Providers Care Acid Changer Name Role Phone MccrackenXiomara sifuentes Mahsa GUM PULLER Primary Care Provider Allergies No known active [...] PM EDT Office Visit Obstetrics and Gynecology [address] [phone] Madhavi Reynolds CNM Vasomotor symptoms due to menopause (Primary Dx); Postmenopausal HRT (hormone replacement therapy); Sebaceous cyst of labia from Last 3 Months Surgical History Surgery Date Site/Laterality Comments APPENDECTOMY PROCEDURE: HISTORICAL APPENDECTOMY SECTION PROCEDURE: HISTORICAL DELIVERY OTHER SURGICAL HISTORY PROCEDURE: [place] DILATION & CURETTAGE DX&/THER NONOBSTETRIC CERVICAL BIOPSY W/ LOOP ELECTRODE EXCISION PROCEDURE: AK CONIZATION CERVIX W/WO D&C RPR ELTRD EXC [...] care for your loved ones. For example, child daycare worker or elderly care for an older adult? [...] AM EDT Office Visit Obstetrics & Gynecology [address] [phone] Roseann Schwarz, SVETLANAM [address] [place] [address] 03/18/2025 2:45 PM EDT Office Visit Obstetrics & Gynecology [address] [phone] Roseann Schwarz, JENNIFER [address] [place] [address] Health Maintenance Due Date Last Done Comments [...] Screening 11/07/2025 11/07/2024 Breast Cancer Screening 05/05/2026 05/05/20, 05/01/2023, 04/26/2022, Additional history exists Depression Screening [...] is recommended in 1 year. Mammo Location: [facility], [address] [place] [address], [address], . -------- FINAL REPORT -------- Dictated By: Shauna Madrid Dictated Date: 05/06/2024 16:14 ET Assigned Physician: Shauna Madrid Reviewed and Electronically Signed By: Shauna Madrid Signed Date: 05/06/2024 16:18 ET Workstation ID: [id number] Transcribed By: Self Edit Transcribed Date: 05/06/2024 [...] is recommended in 1 year. Mammo Location: [facility], [address] [place] [address], [facility], . -------- FINAL REPORT -------- Dictated By: Shauna Madrid Dictated Date: 05/06/2024 16:14 ET Assigned Physician: Shauna Madrid Reviewed and Electronically Signed By: Shauna Madrid Signed Date: 05/06/2024 16:18 ET Workstation ID: [id number] Transcribed By: Self Edit Transcribed Date: 05/06/2024 16:14 ET us Xiomara Mccracken GUM PULLER IMG BI PROCEDURES Final Res ult * Pap smear (06/04/2020) 06/04/2020 Narrative HISTORICAL TESTING LAB RESULTING AGENCY - 06/09/2020 1:55 PM EST [id number] THINPREP PAP, IMAGED: NEGATIVE FOR SQUAMOUS INTRAEPITHELIAL LESION AND MALIGNANCY . CLUE CELLS ARE PRESENT. TAMMY LARES , CT(ASCP) (CASE ELECTRONICALLY SIGNED 06 09 2020) RESULT [...] Most Recently Relevant to Health Maintenance Insurance [facility] [address] [place] [address] Care Teams Acid Changer Relationship Specialty Start Date End Date Xiomara Mccracken NP [address] [place], [place] [phone] PCP - General 11/29/22
[2025-01-30 14:47] LABS: Appearance Urine Clear; Glucose Urine UA Negative (Negative); PH 6.0 (5.0-9.0); Specific Gravity - Urine <= 1.005 (1.005-1.025)
== END 2025-01-30 12:49 | disposition home or self-care (01) ==
LOC: HO.WFDLDS 12:48
PROVIDERS: Visit Provider Physician Assistant
DX: Z13.220 Encounter for screening for lipoid disorders (principal); M25.551 Pain in right hip; M25.552 Pain in left hip; M54.50 Low back pain, unspecified; M25.511 Pain in right shoulder; G47.00 Insomnia, unspecified; N95.1 Menopausal and female climacteric states; R73.03 Prediabetes; R31.9 Hematuria, unspecified
CPT/HCPCS: 81003

== ENCOUNTER 2025-05-05 08:04 | Outpatient (REF) | payer OTHER, SELFPAY ==
--- OUTSIDE RECORDS SUMMARY | 2025-05-05 08:07 | XMS_ITS | Clinical Summary ---
Author Organization [facility] [address] [facility] Address [address] [place] [address] Phone Care Team Providers Care Commercial Loan Reviewer Name Role Phone Xiomara Mccracken NP Primary Care Provider Allergies No known active allergies Medications albuterol HFA (PROAIR HFA ; PROVENTIL HFA ; VENTOLIN HFA) 90 mcg/actuation inhaler Inhale 2 puffs by mouth every 6 (six) hours if needed for wheezing. Active estradioL (VIVELLE-DOT) 0.025 mg/[address] 1 patch on the skin 2 (two) times a week. 24 patch 3 5 04/16/20 26 Active medroxyPROGESTE Jadon (PROVERA) 5 mg tablet Take 1 tablet (5 mg total) by mouth 1 (one) time each day. 90 tablet 2 5 Active estradioL (VIVELLE-DOT) 0.025 mg/[address] 1 patch on the skin 2 (two) times a week. 24 patch 3 5 04/14/20 25 Discontinu ed(Reorder ) medroxyPROGESTE Jadon (PROVERA) 5 mg tablet Take 1 tablet (5 mg total) by mouth 1 (one) time each day. 90 tablet 2 5 04/14/20 25 Discontinu ed(Reorder ) Active Problems Problem Noted Date Diagnosed Date Postmenopausal HRT (hormone replacement therapy) 11/07/2024 Encounters Date Type Department Care Team Description 04/14/2025 2:30 PM EDT Office Visit Obstetrics and Gynecology - [address] [phone] Roseann Schwarz CNM Encounter for gynecological examination without abnormal finding (Primary Dx); Postmenopausal HRT (hormone replacement therapy) 02/11/2025 9:45 AM EDT Office Visit Obstetrics & Gynecology - [address] [phone] Roseann Schwarz CNM Postmenopausal HRT (hormone replacement therapy) (Primary Dx) from Last 3 Months Surgical History Surgery Date Site/Laterality Comments APPENDECTOMY PROCEDURE: HISTORICAL APPENDECTOMY SECTION PROCEDURE: HISTORICAL DELIVERY OTHER SURGICAL HISTORY PROCEDURE: [place] DILATION & CURETTAGE DX&/THER NONOBSTETRIC CERVICAL BIOPSY W/ LOOP ELECTRODE EXCISION PROCEDURE: LA CONIZATION CERVIX W/WO D&C RPR ELTRD EXC [...] Years Used Date Smoking Tobacco: Former Cigarettes 0 Q uit: 02/23/2007 Smokeless Tobacco: Never Tobacco Cessation:Counseling Given: Not Answered Alcohol Use Standard Drinks/Week Comments Yes 0 [...] Record ed Within the last 3 months, benjamin goodwin many times did you visit the emergency [...] for your loved ones. For example, child care education coordinator or elderly care for an older adult? [...] Date Recorded What is your living situation? Unrecognized valu e 11/07/2024 Comments No Sex and Gender Information Value Date Recorded Sex Assigned at Not on file Legal Sex Female 9:02 AM EST Gender Identity Not on file Sexual Orientation Not on file Obstetrics History * This document contains information received from the source organization and may not represent a complete record from that organization. Para Term AB IAB SAB Ectopic Multiple Livin g Live Births 2 1 1 1 1 Date Outcome GA Total Labor Labor/2nd/3rd Weight Sex Type Anes PTL Evy A1 A5 Name Clin 5 2007 Term 40w 2d 3459 g (122 oz) F CS-Un spec Spinal Livin g 8 8 venecia fady villafuerte Comments:NICU x12d, pu lmonary hypertension Last Filed Vital Signs Vital Sign Reading Time Taken Comments Blood Pressure 133/80 04/14/2025 2:30 PM EDT Pulse 78 04/14/2025 2:30 PM EDT Temperature - - Respiratory Rate 12 11/07/2024 2:15 PM EDT Oxygen Saturation - - Inhaled Oxygen Concentration - - Weight 68.5 kg (151 lb) 04/14/2025 2:30 PM EDT Height 167.6 cm (5' 6 ) 04/14/2025 2:30 PM EDT Body Mass Index 24.37 04/14/2025 2:30 PM EDT Plan of Treatment Upcoming Encounters Date Type Department Care Team (Late st Contact Info) Description 05/11/2025 4:50 PM EST Appointment Radiology Department [address] [phone] Health Maintenance Due Date Last Done Comments Colorectal Cancer Screening: Colonoscopy 1976 DTaP,Tdap,and Td Vaccines (1 - Tdap) 1995 Hepatitis B Vaccines (1 of 3 - 19+ 3-dose series) 1995 HIV Screening 06/03/2022 Hepatitis C Screening 06/03/2022 Cervical Cancer Screening: Pap Smear 06/04/2023 06/04/2020 COVID-19 Vaccine ( season) 2025 07/15/2021, 11/12/2020, 10/22/2020 Influenza Vaccine (#1) 2025 04/18/2019, 2017 Social Influencers of Health Screening 11/07/2025 11/07/2024 Breast Cancer Screening 05/05/2026 05/05/20 24, 05/01/2023, 04/26/2022, Additional history exists RSV Immunization Adult Patients (1 - 1-dose 75+ series) 2051 Depression Screening Completed 04/13/2025 HIB Vaccines Aged Out No longer eligi [...] is recommended in 1 year. Mammo Location: [facility], [address] [place] [address], [address], . -------- FINAL REPORT -------- Dictated By: Shauna Madrid Dictated Date: 05/06/2024 16:14 ET Assigned Physician: Shauna Madrid Reviewed and Electronically Signed By: Shauna Madrid Signed Date: 05/06/2024 16:18 ET Workstation ID: [id number] Transcribed By: Self Edit Transcribed Date: 05/06/2024 [...] is recommended in 1 year. Mammo Location: [facility], [address] [place] [address], [address], . -------- FINAL REPORT -------- Dictated By: Shauna Madrid Dictated Date: 05/06/2024 16:14 ET Assigned Physician: Shauna Madrid Reviewed and Electronically Signed By: Shuana Madrid Signed Date: 05/06/2024 16:18 ET Workstation ID: [id number] Transcribed By: Self Edit Transcribed Date: 05/06/2024 16:14 ET us Xiomara Mccracken NP IMG BI PROCEDURES Final Res ult * Pap smear (06/04/2020) 06/04/2020 Narrative HISTORICAL TESTING LAB RESULTING AGENCY - 06/09/2020 1:55 PM EST [id number] THINPREP PAP, IMAGED: NEGATIVE FOR SQUAMOUS INTRAEPITHELIAL [...] Relevant to Health Maintenance Insurance [facility] [address] [place] [address] Care Teams Commercial Loan Reviewer Relationship Specialty Start Date End Date Xiomara Mccracken NP [address] [facility] [address] [place], [place] [id number] [facility] - General 11/29/22
[2025-05-05 08:19] LABS: MANUAL DIFF FLAG NO
[2025-05-05 08:42] LABS: Hematocrit 39.6 % (37.0-47.0); Hemoglobin 12.9 g/dl (12.0-16.0); Imm Gran Abs Auto 0.04 X10*3/uL (0.00-0.03); Imm Gran Pct Auto 0.5 % (0.0-0.4); Lymphocytes Absolute Auto 1.8 X10*3/uL (1.2-4.9); Mean Corpuscular HGB Conc 32.6 g/dl (31.0-35.0); Mean Corpuscular Hemoglobin 28.2 pg (27.0-33.0); Mean Corpuscular Volume 86.7 fL (80.0-98.0); NRBC Abs Auto 0.000 X10*3/uL (0.0-0.012); NRBC Pct Auto 0.0 /100WBC (0.0-0.2); Platelet Count 368 X10*3/uL (160-400); Red Blood Count 4.57 X10*6/uL (4.20-5.50); White Blood Count 8.8 X10*3/uL (4.8-10.8)
[2025-05-05 08:55] LABS: Appearance Urine Clear; Glucose Urine UA Negative (Negative); PH 5.5 (5.0-9.0); Specific Gravity - Urine 1.025 (1.005-1.025); UMIC TRIGGER UACC YES
[2025-05-05 09:30] LABS: Alanine Aminotransferase 13 U/L (0-31); Albumin Level 4.8 g/dL (3.5-5.0); Alkaline Phosphatase 84 U/L (39-117); Anion Gap 14 (12-20); Aspartate Amino Transferase 21 U/L (5-31); Blood Urea Nitrogen 18 mg/dL (9-16); Calcium 9.3 mg/dL (8.4-10.2); Carbon Dioxide 23 mmol/L (22-29); Chloride 107 mmol/L (96-108); Estimated Glomerular Filt Rate > 60; Magnesium 2.0 mg/dL (1.6-2.6); Potassium 4.1 mmol/L (3.3-5.1); Sodium 140 mmol/L (135-145); Total Protein 7.7 g/dL (6.5-8.0)
[2025-05-05 09:51] LABS: Microalbum/Creatinine Ratio Ur 5.1 ug/mg cr (<30)
== END 2025-05-05 08:05 | disposition home or self-care (01) ==
LOC: HO.LAB 08:04
PROVIDERS: PCP Physician Assistant; Visit Provider Physician Assistant
DX: N95.1 Menopausal and female climacteric states (principal); R73.01 Impaired fasting glucose; R73.03 Prediabetes; M25.551 Pain in right hip; M25.552 Pain in left hip; M54.50 Low back pain, unspecified; M25.511 Pain in right shoulder; G47.00 Insomnia, unspecified; E78.00 Pure hypercholesterolemia, unspecified; E55.9 Vitamin D deficiency, unspecified
CPT/HCPCS: 36415; 80053; 81001; 82043; 82306; 82570; 83036; 83735; 84443; 85025

== ENCOUNTER 2025-05-06 14:11 | Outpatient (AMB) | payer OTHER, SELFPAY ==
--- NOTE | 2025-05-06 14:18 | A.OFFPC_ITS ---
Vital Signs 05/06/25 14:21 05/06/25 14:26 BP 147/67 H 138/80 Blood Pressure Location Lt brachial Lt brachial Position Sitting Sitting Respiration 14 Pulse 92 Pulse Source Pulse Oximeter Temp 98.2 F Temp Source Oral Pulse Oximetry (%) 97 Oxygen Delivery Method Room Air Intake Visit Reasons: 3-4 months Intake Note: Follow up Electroneurodiagnostic Technologist Required: No Allergies No Known Allergies Allergy (Verified 05/06/25 14:18) Medication List - Last Reconciled 05/06/25 by Farrah Chavez PA-C albuterol sulfate 90 mcg/actuation 2 puffs inhalation Q4-6H PRN cetirizine (All Day Allergy (cetirizine)) 10 mg PO DAILY PRN estradiol 1 patch topical 2XW medroxyprogesterone 5 mg PO DAILY multivitamin 1 tab PO DAILY [probiotic PO] trazodone 100 mg PO BEDTIME Tobacco use date assessed: 05/06/25 Dental Screening Dental Screen Date: 12/17/24 HPI 3-4 months HPI Details Pt is a 49 year old female who presents today for a follow up. She has a hx of perimenopause, prediabetic, hyperlipidemia Endo: Last A1c was consistent with prediabetes. No family history. She has increased physical activity and healthy diet. She is going to start eating dinner earlier. Psych: She is feeling a lot better with the trazodone. She is sleeping in her mood is improved. 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 Uro: still has hematuria. 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 and states she is finally feeling better Mammo: mauro 05/18 Colonoscopy: due in 2027 [facility] Medical History (Updated 05/06/25 @ 14:43 by Farrah Chavez PA-C) Sinusitis Vitamin D deficiency Elevated cholesterol Surgical History Hx of section Hx of appendectomy Family History Father Alcohol abuse Substance abuse High cholesterol Cardiovascular disease Maternal Grandmother Leukemia Social History (Updated 05/06/25 @ 14:21 by Isabella Snyder CMA) Housing: Apartment Alcohol intake: current Patient Tobacco Use Status: Former Tobacco user e-Cigarette/Vaping Use: Never Used Use of substances other than those prescribed or required for medical reasons: No Substance Use Type: Marijuana service: No Current occupational status: employed 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 [employer] Current occupational exposures/hazards: No Cognitive needs: No Hearing needs: No Vision needs: No Questionnaire Thrive Questionnaire Date Thrive assessed: 12/17/24 I am a: Patient What is your living situation today?: I have a steady place to live Within the past 12 months, did the food you bought not last and you didn't have the money to get more?: Never true Within the past 12 months, did you worry whether your food would run out before you got money to buy more?: Never true Do you have trouble paying for medicines?: No Do you have trouble getting transportation to medical appointments?: No Do you have trouble paying your heating and electricity bill?: No Do you have trouble taking care of your child, family member or friend?: No Do you have trouble with day-to-day activities such as bathing, preparing meals, shopping, managing finances, etc.?: No Are you currently unemployed and looking for a job?: No Are you interested in more education?: No Please select the resources that you would like help with: None Currently or been in a relationship where the following occur: No concerns reported THRIVE Score: 0 AUDIT C Alcohol Use Questionnaire (AUDIT-C) 1. How often do you have a drink containing alcohol?: Monthly or less 2. How many drinks containing alcohol do you have on a typical day when you are drinking?: 1 or 2 3. How often do you have six or more drinks on one occasion?: Never Total Score: 1 LUZMA-7 AMB Questionnaire LUZMA-7 Date LUZMA - 7 assessed: 12/17/24 Source: Developed by Drs. Sherwin Cha, Liz Cervantes, Sourav Beyer and colleagues, with an educational allyssa from [facility]. Physical exam (Primary Care) Vital Signs: Last Vital Signs Temp 98.2 F 05/06/25 14:21 Pulse 92 05/06/25 14:21 Resp 14 05/06/25 14:21 BP 147/67 H 05/06/25 14:21 Pulse Ox 97 05/06/25 14:21 Oxygen Delivery Method Room Air 05/06/25 14:21 Tobacco/Smoking Status: Tobacco use Status Tobacco use date assessed 05/06/25 05/06/25 14:22 Patient Tobacco Use Status Former Tobacco user 05/06/25 14:22 e-Cigarette/Vaping Use Never Used 05/06/25 14:22 Thrive Assessment: Date of Thrive Assessment Date Thrive assessed 12/17/24 05/06/25 14:22 Currently or been in a relationship where the following occur: No concerns reported Const Orientation/consciousness: patient oriented x3 HENMT Ears: hearing grossly normal bilaterally Neck Thyroid: Thyroid normal Lymphatic: no lymphadenopathy noted Resp Auscultation: clear to auscultation bilaterally Cardio Rate: regular rate Rhythm: regular rhythm Heart sounds: S1 normal heart sound present and S2 normal heart sound present Skin General skin exam: no rashes or lesions noted Neuro General: patient oriented x3, gait normal and no focal motor deficits Results Reviewed Results Reviewed: Laboratory Tests 05/05/25 05/05/25 08:11 08:17 WBC 8.8 RBC 4.57 Hgb 12.9 Hct 39.6 Plt Count 368 Sodium 140 Potassium 4.1 Chloride 107 Carbon Dioxide 23 Anion Gap 14 BUN 18 H Creatinine 0.97 Estimated GFR > 60 Fasting Glucose 111 H Estimat Average Glucose 123 Hemoglobin A1c % 5.9 AST 21 ALT 13 25-OH Vitamin D Total 34.6 TSH 2.00 Urine Creatinine 212.18 Urine Microalbumin 11.0 Microalb/Creat Ratio 5.1 Coding Level of Care Code Est Pt Level 4 (27633) Complex EM visit Add On G2211 Diagnoses Prediabetes R73.03 Hypercholesterolemia E78.00 Insomnia G47.00 Hematuria R31.9 Assessment & Plan Assessment & Plan (1) Prediabetes: Code(s): R73.03 - Prediabetes Category: Medical Plan: She is working hard on diet and lifestyle modifications. We will recheck in a few months (2) Hypercholesterolemia: Code(s): E78.00 - Pure hypercholesterolemia, unspecified Category: Medical Plan: We will monitor and recheck in a few months (3) Insomnia: Code(s): G47.00 - Insomnia, unspecified Category: Medical Plan: Significantly improved with trazodone 100 mg. Continue current regimen (4) Hematuria: Code(s): R31.9 - Hematuria, unspecified Category: Medical Plan: referral to urology Orders: Orders Complete Blood Count Auto Diff Today E78.00 - Pure hypercholesterolemia, unspecified, R31.9 - Hematuria, unspecified, R73.03 - Prediabetes TSH reflex Free T4 Today E78.00 - Pure hypercholesterolemia, unspecified, R31.9 - Hematuria, unspecified, R73.03 - Prediabetes Lipid Panel Today E78.00 - Pure hypercholesterolemia, unspecified, R31.9 - Hematuria, unspecified, R73.03 - Prediabetes Comprehensive [place]. Panel Fast Today E78.00 - Pure hypercholesterolemia, unspecified, R31.9 - Hematuria, unspecified, R73.03 - Prediabetes Hemoglobin A1c Today E78.00 - Pure hypercholesterolemia, unspecified, R31.9 - Hematuria, unspecified, R73.01 - Impaired fasting glucose, R73.03 - Prediabetes Referrals Urology Referral R31.9 - Hematuria, unspecified Medications: New tretinoin 0.025% 1 appl topical BEDTIME 45 grams 1RF Refilled albuterol sulfate 90 mcg/actuation 2 puffs inhalation Q4-6H PRN 8.5 grams 3RF sh ortness of breath, wheezing or chest tightness
[2025-05-06 14:21] VITALS: BP 147/67; PULSE 92; RESP 14; TEMP 36.8; O2SAT 97
[2025-05-06 14:26] VITALS: BP 138/80
--- OUTSIDE RECORDS SUMMARY | 2025-05-06 17:27 | XMS_ITS | Clinical Summary ---
Author Organization [facility] [address] [facility] Address [address] [place] [address] Phone Care Team Providers Care Hand Salter Name Role Phone Xiomara Mccracken NP Primary [...] EDT Office Visit Obstetrics and Gynecology - [address] [phone] Roseann Schwarz CNM Encounter for gynecological examination without abnormal finding (Primary Dx); Postmenopausal HRT (hormone replacement therapy) 02/11/2025 9:45 AM EDT Office Visit Obstetrics & Gynecology - [address] [phone] Roseann Schwarz CNM Postmenopausal HRT (hormone replacement therapy) (Primary Dx) from Last 3 Months Surgical History Surgery Date Site/Laterality Comments APPENDECTOMY PROCEDURE: HISTORICAL APPENDECTOMY SECTION PROCEDURE: HISTORICAL DELIVERY OTHER SURGICAL HISTORY PROCEDURE: [place] DILATION & CURETTAGE DX&/THER NONOBSTETRIC CERVICAL BIOPSY W/ LOOP ELECTRODE EXCISION PROCEDURE: [place] CONIZATION CERVIX W/WO D&C RPR ELTRD EXC [...] 05/11/2025 4:50 PM EST Appointment Radiology Department [address] [phone] Health Maintenance Due Date Last Done Comments [...] is recommended in 1 year. Mammo Location: [facility], [address] [place] [address], [id number], . -------- FINAL REPORT -------- Dictated By: Shauna Madrid Dictated Date: 05/06/2024 16:14 ET Assigned Physician: Shauna Madrid Reviewed and Electronically Signed By: Shauna Madrid Signed Date: 05/06/2024 16:18 ET Workstation ID: [id number] Transcribed By: Self Edit Transcribed Date: 05/06/2024 [...] is recommended in 1 year. Mammo Location: [facility], [address] [place] [address], [id number], . -------- FINAL REPORT -------- Dictated By: Shauna Madrid Dictated Date: 05/06/2024 16:14 ET Assigned Physician: Shauna Madrid Reviewed and Electronically Signed By: Shauna Madrid Signed Date: 05/06/2024 16:18 ET Workstation ID: [id number] Transcribed By: Self Edit Transcribed Date: 05/06/2024 16:14 ET us Xiomara Mccracken NP IMG BI PROCEDURES Final Res ult * Pap smear (06/04/2020) 06/04/2020 Narrative HISTORICAL TESTING LAB RESULTING AGENCY - 06/09/2020 1:55 PM EST [id number] THINPREP PAP, IMAGED: NEGATIVE FOR SQUAMOUS INTRAEPITHELIAL [...] Most Recently Relevant to Health Maintenance Insurance [facility] [address] [place] [address] Care Teams Hand Salter Relationship Specialty Start Date End Date Xiomara Mccracken NP [address] [facility] [address] [place], [place] [id number] [facility] - General 11/29/22
== END 2025-05-06 14:49 | disposition home or self-care (01) ==
LOC: HO.HMCFM 14:12
PROVIDERS: PCP Physician Assistant; Visit Provider Physician Assistant
DX: R73.03 Prediabetes (principal); E78.00 Pure hypercholesterolemia, unspecified; G47.00 Insomnia, unspecified; R31.9 Hematuria, unspecified